=== PATIENT | female | born 1945 | race Caucasian/White ===

== ENCOUNTER → 2016-12-16 | Outpatient (CLI) | payer MEDICARE, OTHER ==
--- NOTE | 2016-12-16 11:27 | CT ---
EXAMINATION TYPE: CT chest wo con DATE OF EXAM: 12/16/2016 10:25 AM COMPARISON: Radiograph 08/04/2016 HISTORY: 71 year-old female with SOB, Cough TECHNIQUE: Contiguous axial scanning of the chest without IV contrast. Coronal and sagittal reconstru ctions performed. CT DLP: 413.20 mGycm Automated exposure control for dose reduction was used. FINDINGS: The heart is upper limits of normal in size without pericardial effusion. Coronary vessel calcificati ons are present and are a marker for coronary artery disease. Ascending aorta is ectatic and 3.9 cm. Conventional arch vessel branching anatomy. No thoracic lymphadenopathy by CT size criteria. Postlumpectomy scar along the lateral left breast. Evaluation of the lungs shows interstitial fibrotic change in the left upper lobe weight subpleural r eticulations and minimal microcystic change. Given the overlying left breast lumpectomy scar, radiati on therapy changes are suggested. However, the remainder of the lungs shows some mild patchy areas of groundglass and some scattered se ptal thickening. No consolidation or pleural effusion. No silvia honeycombing, thickening of the bronc hovascular bundles, cystic change, or tree-in-bud opacities. There is a small hiatal hernia and mild colonic diverticulosis seen in the upper abdomen. Cholecystec gaurav clips are present. In addition, there is a subtle 1.9 cm area of relative hypodensity at the pancreatic tail. Bones: Disc/endplate degenerative changes throughout the thoracic spine. No osseous destructive proce ss. IMPRESSION: 1. LUMPECTOMY SCAR IN THE LATERAL LEFT BREAST WITH UNDERLYING FIBROTIC CHANGES IN THE LEFT UPPER LOBE SUGGESTIVE OF POST RADIATION THERAPY CHANGE. 2. HOWEVER, OTHER PORTIONS OF THE LUNGS SHOW AREAS OF GROUNDGLASS AND INTERSTITIAL THICKENING. SOME D IFFERENTIAL CONSIDERATIONS INCLUDE INFLAMMATORY PROCESSES SUCH NSIP AND HYPERSENSITIVITY PNEUMONIT IS. AREAS OF MOSAIC ATTENUATION SECONDARY TO SMALL AIRWAYS DISEASE IS ALSO POSSIBLE. 3. SUBTLE 1.9 CM AREA OF HYPODENSITY AT THE PANCREATIC TAIL. PSEUDOLESION/ARTIFACT IS POSSIBLE. RECOM MEND THREE-MONTH FOLLOW-UP CT ABDOMEN WITH CONTRAST TO EXCLUDE A SMALL EARLY MASS. 4. SMALL HIATAL HERNIA AND MILD COLONIC DIVERTICULOSIS.
== END | disposition home or self-care (01) ==
LOC: RADCTMAIN 08:24
PROVIDERS: ATTEND Internal Medicine Critical Care Medicine
DX: J98.4 Other disorders of lung (principal); N64.89 Other specified disorders of breast; R06.02 Shortness of breath; R06.00 Dyspnea, unspecified
CPT/HCPCS: 71250; 82565; 84520

== ENCOUNTER → 2017-02-09 | Outpatient (CLI) | payer MEDICARE, OTHER ==
--- NOTE | 2017-02-09 16:34 | BD ---
EXAMINATION TYPE: MG DEXA axial skeleton. DATE OF EXAM: 02/09/2017 COMPARISON: Previous study dated 02/05/2015 CLINICAL HISTORY: Postmenopausal female. Height: 4 FT 11 IN Weight: 197 FRAX RISK QUESTIONS: Alcohol (3 or more units per day): NO Family History (Parent hip fracture): YES Glucocorticoids (More than 3mos): NO (Ex: prednisone, prednisolone, methylprednisolone, dexamethasone, and hydrocortisone). History of Fracture in Adulthood: YES Secondary Osteoporosis: 1. Type 1 Diabetes: NO 2. Hyperthyroidism: NO 3. Menopause before 45: AGE 38 4. Malnutrition: NO 5. Chronic liver disease: NO Rheumatoid Arthritis: NO Current Tobacco Use: NO RISK FACTORS HISTORY OF: Active: YES Postmenopausal woman: PART HYST AGE 38 MEDICATIONS: Prednisone or other steroids: YES How Lon YEARS Additional Medications: HYDROCHLOROTHIAZIDE, INHALER , ARIMADEX, ZOLOFT, POTASSIUM CHLORIDE, VITAMIN DAILY, Additional History: EXAM MEASUREMENTS: Bone mineral densitometry was performed using the [employer]. Bone mineral density as measured about the Lumbar spine is: ----- L1-L4(G/cm2): 1.385 T Score Values are as follows: ----- L2: 0.8 ----- L3: 2.0 ----- L4: 3.6 ----- L1-L4: 1.7 Bone mineral density has: Increased 2.9% since study of: 2014 Bone mineral density about the R hip (g/cm2): 0.916 Bone mineral density about the L hip (g/cm2): 0.900 T Score values are as follows: -----R Neck: -0.9 -----L Neck: -1.0 -----R Total: -0.6 -----L Total: -0.4 Bone mineral density has: Decreased -1.2 % since study of: 2014 IMPRESSION: NORMAL STUDY. NOTE: T-SCORE=SD OF THE YOUNG ADULT MEAN.
== END | disposition home or self-care (01) ==
LOC: RADBDWWP 10:01
PROVIDERS: ATTEND Internal Medicine Hematology & Oncology
DX: C50.919 Malignant neoplasm of unspecified site of unspecified female breast (principal); Z79.890 Hormone replacement therapy
CPT/HCPCS: 77080

== ENCOUNTER → 2017-02-09 | Outpatient (CLI) | payer MEDICARE, OTHER ==
--- NOTE | 2017-02-09 11:22 | MM ---
Reason for exam: additional evaluation requested from prior study. Last mammogram was performed 1 year ago. History: Patient is postmenopausal, has history of breast cancer at age 49, and is nulliparous. Family history of breast cancer in paternal cousin at age 40. Malignant left breast needle localization of the left breast, December 05, 2010. Lumpectomy of the left breast, December 05, 2010. Malignant left mammotome panel of the left breast, November 29, 2010. Reduction of the left breast, 1994. Mastectomy of the right breast, 1993. TRAM Reconstruction of the right breast, 1993. Took hormonal contraceptives for 7 years beginning at age 22. Took progesterone for 6 years. Taking antineoplastic for 4 years. Physical Findings: Nurse did not find any significant physical abnormalities on exam. MG 3D Diag Mammo W/Cad LT CC and MLO view(s) were taken of the left breast. Prior study comparison: February 07, 2016, left breast MG 3d diag mammo w/cad LT. February 05, 2015, left breast MG diagnostic mammo LT w CAD. There are scattered fibroglandular densities. Stable benign calcifications. Stable post lumpectomy changes. No significant new findings when compared with previous films. These results were verbally communicated with the patient and result sheet given to the patient on 02/09/17. ASSESSMENT: Benign, BI-RAD 2 RECOMMENDATION: Follow-up diagnostic mammogram of the left breast.
== END | disposition home or self-care (01) ==
LOC: RADMAMWWP 09:58
PROVIDERS: ATTEND Radiology Diagnostic Radiology
DX: Z08 Encounter for follow-up examination after completed treatment for malignant neoplasm (principal); Z85.3 Personal history of malignant neoplasm of breast
CPT/HCPCS: G0206; G0279

== ENCOUNTER → 2017-04-15 | Outpatient (CLI) | payer MEDICARE, OTHER ==
--- NOTE | 2017-04-15 13:19 | CT ---
EXAMINATION TYPE: CT chest wo con DATE OF EXAM: 04/15/2017 COMPARISON: 12/16/2016 HISTORY: Shortness of breath CT DLP: 755 mGycm. Automated Exposure Control for Dose Reduction was Utilized. TECHNIQUE: CT scan of the thorax is performed without IV contrast and with high-resolution technique . FINDINGS: LUNGS: Bilateral areas of groundglass opacification are noted. There is interlobular septal thickenin g changes of central bronchiectasis. No pneumothorax or pleural effusion.. 3 mm nodule right upper lo be axial image 5 anteriorly MEDIASTINUM: Lack of IV contrast is noted to limit evaluation for mediastinal and especially hilar ad enopathy. There are no definitive greater than 1 cm hilar or mediastinal lymph nodes. Heart remains p rominent. OTHER: Area of abnormal density within the left breast with skin thickening is stable may be related to previous biopsy should be correlated clinically. Coronary artery calcification noted. Previous cho lecystectomy suggested. Hypertrophic and degenerative change of the spine. IMPRESSION: 1. Findings compatible with chronic interstitial lung disease such as pulmonary fibrosis. 2. Probable lumpectomy scar involving the left breast. 3. Areas of groundglass attenuation bilaterally can be associated with alveolitis or atelectasis. Cor relate clinically. 4. Bronchiectasis. 5. There is a 3 mm right upper lobe pulmonary nodule not seen with certainty on the previous exam. Fo llow-up 6 month basis.
== END | disposition home or self-care (01) ==
LOC: RADCTMAIN 12:39
PROVIDERS: ATTEND Internal Medicine Critical Care Medicine
DX: J98.4 Other disorders of lung (principal); R06.02 Shortness of breath; R91.1 Solitary pulmonary nodule; Z91.030 Bee allergy status; Z88.8 Allergy status to other drugs, medicaments and biological substances
CPT/HCPCS: 71250

== ENCOUNTER → 2018-02-11 | Outpatient (CLI) | payer MEDICARE, OTHER ==
--- NOTE | 2018-02-11 12:10 | MM ---
Reason for exam: additional evaluation requested from prior study. Last mammogram was performed 1 year ago. History: Patient is postmenopausal, has history of breast cancer at age 49, and is nulliparous. Family history of breast cancer in paternal cousin at age 40. Malignant left breast needle localization of the left breast, December 05, 2010. Lumpectomy of the left breast, December 05, 2010. Malignant left mammotome panel of the left breast, November 29, 2010. Reduction of the left breast, 1994. Mastectomy of the right breast, 1993. TRAM Reconstruction of the right breast, 1993. Took hormonal contraceptives for 7 years beginning at age 22. Took progesterone for 6 years. Taking antineoplastic for 7 years beginning at age 65. Physical Findings: Nurse did not find any significant physical abnormalities on exam. MG 3D Diag Mammo W/Cad LT CC and MLO view(s) were taken of the left breast. Prior study comparison: February 09, 2017, left breast MG 3d diag mammo w/cad LT. February 07, 2016, left breast MG 3d diag mammo w/cad LT. There are scattered fibroglandular densities. No suspicious abnormality. Post therapy change in the upper outer quadrant on the left breast. These results were verbally communicated with the patient and result sheet given to the patient on 02/11/18. ASSESSMENT: Benign, BI-RAD 2 RECOMMENDATION: Follow-up diagnostic mammogram of the left breast in 1 year.
== END | disposition home or self-care (01) ==
LOC: RADMAMWWP 11:15
PROVIDERS: ATTEND Radiology Diagnostic Radiology
DX: C50.912 Malignant neoplasm of unspecified site of left female breast (principal)
CPT/HCPCS: 77065; G0279; 77061

== ENCOUNTER → 2019-02-14 | Outpatient (CLI) | payer MEDICARE, OTHER ==
--- NOTE | 2019-02-15 09:01 | MM ---
Reason for exam: additional evaluation requested from prior study. Last mammogram was performed 1 year ago. History: Patient is postmenopausal, has history of breast cancer at age 49, and is nulliparous. Family history of breast cancer in paternal cousin at age 40. Malignant left breast needle localization of the left breast, December 05, 2010. Lumpectomy of the left breast, December 05, 2010. Malignant left mammotome panel of the left breast, November 29, 2010. Radiation therapy of the left breast, 2010. Reduction of the left breast, 1994. Mastectomy of the right breast, 1993. TRAM Reconstruction of the right breast, 1993. Took hormonal contraceptives for 7 years beginning at age 22. Took progesterone for 6 years. Taking antineoplastic for 7 years beginning at age 65. Physical Findings: Nurse did not find any significant physical abnormalities on exam. MG 3D Diag Mammo W/Cad LT CC, MLO, and XCCL view(s) were taken of the left breast. Prior study comparison: February 11, 2018, left breast MG 3d diag mammo w/cad LT. February 09, 2017, left breast MG 3d diag mammo w/cad LT. The breast tissue is heterogeneously dense. This may lower the sensitivity of mammography. Stable post operative change and distortion upper outer left breast. No new masses. These results were verbally communicated with the patient and result sheet given to the patient on 02/14/19. ASSESSMENT: Benign, BI-RAD 2 RECOMMENDATION: Follow-up diagnostic mammogram of the left breast in 1 year.
--- NOTE | 2019-02-15 18:44 | BD ---
EXAMINATION TYPE: Axial Bone Density DATE OF EXAM: 02/14/2019 COMPARISON: 2017 CLINICAL HISTORY: 73-year-old female postmenopausal screening for osteoporosis Height: 59.5 Weight: 186 FRAX RISK QUESTIONS: Alcohol (3 or more units per day): no Family History (Parent hip fracture): yes, mother Glucocorticoids (More than 3mos): corticosteroids for asthma (Ex: prednisone, prednisolone, methylprednisolone, dexamethasone, and hydrocortisone). History of Fracture in Adulthood: yes Secondary Osteoporosis: 1. Type 1 Diabetes: no 2. Hyperthyroidism: no 3. Menopause before 45: yes 4. Malnutrition: no 5. Chronic liver disease: no Rheumatoid Arthritis: no Current Tobacco Use: no RISK FACTORS HISTORY OF: Family History of Osteoporosis: yes Active: yes Diet low in dairy products/other sources of calcium: at least one serving a day Postmenopausal woman: yes Take estrogen and/or progesterone medications: not now How long: age [age] Lost more than 2 inches in height since high school: yes Frequent falls: no Poor Health: no Hyperparathyroidism: no Adrenal Insufficiency: no MEDICATIONS: Prednisone or other steroids: corticosteroids for asthma How Long: about 20 years Thyroid Medications: no Osteoporosis Medications: not now (took Boniva for several years) Additional Medications: Arimedex Additional History: breast CA/radiation EXAM MEASUREMENTS: Bone mineral densitometry was performed using the [employer] System. Bone mineral density as measured about the Lumbar spine is: ----- L1-L4(G/cm2): 1.428 T Score Values are as follows: ----- L2: 1.1 ----- L3: 2.8 ----- L4: 3.5 ----- L1-L4: 2.1 Bone mineral density has: Increased 3.2% since study of: 02/14/2017 Bone mineral density about the R hip (g/cm2): 0.943 Bone mineral density about the L hip (g/cm2): 0.979 T Score values are as follows: -----R Neck: -0.7 -----L Neck: -0.4 -----R Total: -0.4 -----L Total: 0.0 Bone mineral density has: Increased 4.2% since study of: 02/09/2017 IMPRESSION: Normal (Values between +1 and -1 indicate normal bone mass). Consider repeating this study in 5 year s or sooner if there is some new clinical indication. NOTE: T-SCORE=SD OF THE YOUNG ADULT MEAN.
== END | disposition home or self-care (01) ==
LOC: RADBDWWP 10:06
PROVIDERS: ATTEND Internal Medicine Hematology & Oncology
DX: C50.919 Malignant neoplasm of unspecified site of unspecified female breast (principal); Z85.3 Personal history of malignant neoplasm of breast; N95.1 Menopausal and female climacteric states; Z79.890 Hormone replacement therapy
CPT/HCPCS: 77080; 77065; G0279; 77061

== ENCOUNTER → 2019-02-14 | Outpatient (CLI) | payer MEDICARE, OTHER | END | disposition home or self-care (01) | LOC: RADMAMWWP 10:02 | PROVIDERS: ATTEND Radiology Diagnostic Radiology | DX: Z53.9 Procedure and treatment not carried out, unspecified reason (principal) | CPT/HCPCS: 77065 ==

== ENCOUNTER → 2019-06-02 | Outpatient (CLI) | payer MEDICARE, OTHER | END | disposition home or self-care (01) | LOC: CPPFTMAIN 08:34 | PROVIDERS: ATTEND Internal Medicine Critical Care Medicine | DX: J98.4 Other disorders of lung (principal) | CPT/HCPCS: 94060; 94726; 94729 ==

== ENCOUNTER → 2020-01-23 | Outpatient (CLI) | payer MEDICARE | END | disposition home or self-care (01) | LOC: LABWHC1 13:14 | PROVIDERS: ATTEND Otolaryngology | DX: Z11.59 Encounter for screening for other viral diseases (principal) | CPT/HCPCS: 36415; 86769 ==

== ENCOUNTER → 2020-02-17 | Outpatient (CLI) | payer MEDICARE, OTHER ==
--- NOTE | 2020-02-17 09:43 | MM ---
Reason for exam: additional evaluation requested from prior study. Last mammogram was performed 1 year ago. History: Patient is postmenopausal, has history of breast cancer at age 49, and is nulliparous. Family history of breast cancer in paternal cousin at age 40. Malignant left breast needle localization of the left breast, December 05, 2010. Lumpectomy of the left breast, December 05, 2010. Malignant left mammotome panel of the left breast, November 29, 2010. Radiation therapy of the left breast, 2010. Reduction of the left breast, 1994. Mastectomy of the right breast, 1993. TRAM Reconstruction of the right breast, 1993. Took hormonal contraceptives for 7 years beginning at age 22. Took progesterone for 6 years. Taking antineoplastic for 9 years beginning at age 65. Physical Findings: Nurse did not find any significant physical abnormalities on exam. MG 3D Diag Mammo W/Cad LT CC and MLO view(s) were taken of the left breast. Prior study comparison: February 14, 2019, left breast MG 3d diag mammo w/cad LT. February 11, 2018, left breast MG 3d diag mammo w/cad LT. There are scattered fibroglandular densities. Post surgical and post therapy changes left posterior upper outer quadrant. Asymmetric density along the lateral margin is more pronounced but becomes less apparent on 3D images. Fat necrosis calcifications and clips. These results were verbally communicated with the patient and result sheet given to the patient on 02/17/20. ASSESSMENT: Probably benign, BI-RAD 3 RECOMMENDATION: Follow-up diagnostic mammogram of the left breast in 6 months.
== END | disposition home or self-care (01) ==
LOC: RADMAMWWP 07:57
PROVIDERS: ATTEND Radiology Diagnostic Radiology
DX: Z09 Encounter for follow-up examination after completed treatment for conditions other than malignant neoplasm (principal); Z85.3 Personal history of malignant neoplasm of breast
CPT/HCPCS: 77065; G0279; 77061

== ENCOUNTER → 2020-07-06 | Outpatient (CLI) | payer MEDICARE ==
[2020-07-07 04:22] LABS: Basophils # (A) 0.1 k/uL (0-0.2); Basophils % (A) 1 %; Eosinophils # (A) 0.2 k/uL (0-0.7); Eosinophils % (A) 3 %; HGB 13.1 gm/dL (11.4-16.0); Hypochromasia Slight; Lymphocytes # (A) 1.7 k/uL (1.0-4.8); Lymphocytes % (A) 25 %; MCH 30.2 pg (25.0-35.0); MCHC 31.9 g/dL (31.0-37.0); MCV 94.5 fL (80.0-100.0); Mean Platelet Volume 8.4; Monocytes # (A) 0.4 k/uL (0-1.0); Monocytes % (A) 7 %; Neutrophils # (A) 4.1 k/uL (1.3-7.7); Neutrophils % (A) 62 %; Platelet Count 248 k/uL (150-450); RBC 4.34 m/uL (3.80-5.40); RDW 14.2 % (11.5-15.5); WBC 6.7 k/uL (3.8-10.6)
== END | disposition home or self-care (01) ==
LOC: LABWHC1 15:35
PROVIDERS: ATTEND Internal Medicine Critical Care Medicine
DX: J84.10 Pulmonary fibrosis, unspecified (principal); I10 Essential (primary) hypertension; J45.909 Unspecified asthma, uncomplicated; C50.919 Malignant neoplasm of unspecified site of unspecified female breast; M79.7 Fibromyalgia
CPT/HCPCS: 36415; 80053; 80061; 82306; 83036; 84439; 84443; 85025

== ENCOUNTER → 2020-08-27 | Outpatient (CLI) | payer MEDICARE ==
[2020-08-28 01:50] LABS: African American GFR (CKD) 57.3 (60.0-200.0); Albumin 4.5 g/dL (3.80-4.90); Albumin/Globulin Ratio 1.96 (1.60-3.17); Anion Gap 10.6 mmol/L (4.00-12.00); BUN/Creat Ratio 28.18 Ratio (12.00-20.00); Calcium 9.6 mg/dL (8.7-10.3); Carbon Dioxide 25.4 mmol/L (21.6-31.8); Chol/HDL Ratio 3.89; Globulin 2.3 g/dL (1.6-3.3); LDL Cholesterol,Calculated 116.6 mg/dL (0.0-131.0); Non-African American GFR(CKD) 49.4 (60.0-200.0); Potassium 3.9 mmol/L (3.5-5.5); Total Bilirubin 0.3 mg/dL (0.2-1.2); Total Protein 6.8 g/dL (6.2-8.2); VLDL Calculation 39.4 mg/dL (5.00-40.00)
[2020-08-28 02:11] LABS: T4, Free (Free Thyroxine) 0.9 ng/dL (0.80-1.80)
== END | disposition home or self-care (01) ==
LOC: LABWHC1 15:42
PROVIDERS: ATTEND Internal Medicine Critical Care Medicine
DX: I10 Essential (primary) hypertension (principal); J45.909 Unspecified asthma, uncomplicated; C50.919 Malignant neoplasm of unspecified site of unspecified female breast; J84.10 Pulmonary fibrosis, unspecified; M72.9 Fibroblastic disorder, unspecified
CPT/HCPCS: 36415; 80053; 80061; 82306; 84439; 84443

== ENCOUNTER → 2020-08-27 | Outpatient (CLI) | payer MEDICARE ==
--- NOTE | 2020-08-28 09:11 | MM ---
Reason for exam: follow-up at short interval from prior study. Last mammogram was performed 6 months ago. History: Patient is postmenopausal, has history of breast cancer at age 49, and is nulliparous. Family history of breast cancer in paternal cousin at age 40. Malignant left breast needle localization of the left breast, December 05, 2010. Lumpectomy of the left breast, December 05, 2010. Malignant left mammotome panel of the left breast, November 29, 2010. Radiation therapy of the left breast, 2010. Reduction of the left breast, 1994. Mastectomy of the right breast, 1993. TRAM Reconstruction of the right breast, 1993. Took hormonal contraceptives for 7 years beginning at age 22. Took progesterone for 6 years. Taking antineoplastic for 9 years beginning at age 65. Physical Findings: Nurse did not find any significant physical abnormalities on exam. MG 3D Diag Mammo W/Cad LT CC, MLO, spot compression CC, XCCL, and LM view(s) were taken of the left breast. Prior study comparison: February 17, 2020, left breast MG 3d diag mammo w/cad LT. February 14, 2019, left breast MG 3d diag mammo w/cad LT. The breast tissue is heterogeneously dense. This may lower the sensitivity of mammography. Post operative distortion left breast. 1cm inner lower nodule left breast 3cm from nipple. This finding is changed when compared with previous exams. These results were verbally communicated with the patient and result sheet given to the patient on 08/27/20. ASSESSMENT: Incomplete: need additional imaging evaluation, BI-RAD 0 RECOMMENDATION: Ultrasound of the left breast.
--- NOTE | 2020-08-28 09:13 | USB ---
Reason for exam: additional evaluation requested from abnormal screening. History: Patient is postmenopausal, has history of breast cancer at age 49, and is nulliparous. Family history of breast cancer in paternal cousin at age 40. Malignant left breast needle localization of the left breast, December 05, 2010. Lumpectomy of the left breast, December 05, 2010. Malignant left mammotome panel of the left breast, November 29, 2010. Radiation therapy of the left breast, 2010. Reduction of the left breast, 1994. Mastectomy of the right breast, 1993. TRAM Reconstruction of the right breast, 1993. Took hormonal contraceptives for 7 years beginning at age 22. Took progesterone for 6 years. Taking antineoplastic for 9 years beginning at age 65. US Breast LT Left complete breast ultrasound includes all four quadrants, the retroareolar region and axilla. Finding demonstrates a 4.9 x 4.4 x 1.4cm irregular, hypoechoic lesion with calcifications at 3 o'clock and a 0.4 x 0.6 x 0.4cm irregular, hypoechoic lesion at 7 o'clock for which a biopsy is recommended. These results were verbally communicated with the patient and result sheet given to the patient on 08/27/20. ASSESSMENT: Suspicious, BI-RAD 4 RECOMMENDATION: Ultrasound core biopsy of the left breast. Called office with mammographic findings and has scheduled an appointment for the patient for 08/30/[address] Michael. Biopsy scheduled for 09/10/20 at 12:00. PRELIMINARY REPORT CALLED AND FAXED TO DR. MICHAEL ON 08/28/20.
== END | disposition home or self-care (01) ==
LOC: RADMAMWWP 13:46
PROVIDERS: ATTEND Radiology Diagnostic Radiology
DX: R92.8 Other abnormal and inconclusive findings on diagnostic imaging of breast (principal)
CPT/HCPCS: 77065; 76641; G0279; 77061

== ENCOUNTER → 2020-09-10 | Day surgery (SDC) | payer MEDICARE ==
[2020-09-10 12:31] VITALS: BP 126/81; PULSE 101; RESP 16; TEMP 98.2
--- NOTE | 2020-09-10 16:40 | USB ---
EXAMINATION TYPE: US biopsy breast VAD LT, MG post biopsy diagnostic mammo LT wo CAD DATE OF EXAM: 09/10/2020 CLINICAL HISTORY: 75-year-old female with personal history of left breast cancer, R92.8 abnormal mammogram. TECHNIQUE: Ultrasound guided core biopsy of the left breast. COMPARISON: 08/27/2020 and 02/17/2020 FINDINGS: The procedure of ultrasound guided core biopsy was explained to the patient. Benefits, alternatives, and risks were discussed. An informed consent was then obtained. The patient was placed in supine positioning for imaging and for the procedure. The overlying skin was prepped and draped in usual sterile fashion. Lidocaine was used as anesthetic into the skin and subcutaneous tissue up to area of concern in the 7:00 left breast. Under ultrasound guidance, a 13-gauge vacuum-assisted mammotome Elite biopsy gun was used to obtain 5 core samples. Following this, a ribbon clip was left in lesion. The patient tolerated the procedure well without any immediate complication. The patient was kept in the radiology department for short stay after the procedure and then discharged home in stable condition. Postprocedure mammogram shows the ribbon clip to be located at the 6:00 position at the site of focal asymmetry seen on 08/27/2020. IMPRESSION: Successful, uncomplicated ultrasound guided core biopsy of the 6-7 o'clock mammographic correlate in the left breast in a patient with personal history of left breast cancer. Full pathology results to follow. Pathology Results: Benign LEFT BREAST, CORE NEEDLE BIOPSY: Sclerotic fibrosis with focal fat necrosis and chronic inflammation. Current specimen negative for in situ or invasive carcinoma. Focal microcalcification present. Recommendation Follow up mammogram of the left breast in 6 months. JABIER
== END ==
LOC: RADUSWWP 12:04
PROVIDERS: ATTEND Radiology Diagnostic Radiology
DX: N60.32 Fibrosclerosis of left breast (principal); N61.0 Mastitis without abscess; N64.1 Fat necrosis of breast; Z85.3 Personal history of malignant neoplasm of breast
CPT/HCPCS: 88305; 77065; 19083; A4648; J2001

== ENCOUNTER → 2021-09-26 | Outpatient (CLI) | payer MEDICARE ==
--- NOTE | 2021-09-26 14:07 | MM ---
Reason for exam: additional evaluation requested from prior study. Last mammogram was performed 1 year and 1 month ago. History: Patient is postmenopausal, has history of breast cancer at age 49, and is nulliparous. Family history of breast cancer in paternal cousin at age 40. Benign US biopsy breast VAD LT of the left breast, September 10, 2020. Malignant left breast needle localization of the left breast, December 05, 2010. Lumpectomy of the left breast, December 05, 2010. Malignant left mammotome panel of the left breast, November 29, 2010. Radiation therapy of the left breast, 2010. Reduction of the left breast, 1994. Mastectomy of the right breast, 1993. TRAM Reconstruction of the right breast, 1993. Took hormonal contraceptives for 7 years beginning at age 22. Took progesterone for 6 years. Taking antineoplastic for 9 years beginning at age 65. MG 3D Diag Mammo W/Cad LT CC and MLO view(s) were taken of the left breast. Prior study comparison: September 10, 2020, left breast MG diagnostic mammo LT wo CAD. August 27, 2020, left breast MG 3d diag mammo w/cad LT. No significant new findings when compared with previous films. These results were verbally communicated with the patient and result sheet given to the patient on 09/26/21. ASSESSMENT: Benign, BI-RAD 2 RECOMMENDATION: Follow-up diagnostic mammogram of the left breast in 1 year.
== END | disposition home or self-care (01) ==
LOC: RADMAMWWP 13:22
PROVIDERS: ATTEND Radiology Diagnostic Radiology
DX: R92.8 Other abnormal and inconclusive findings on diagnostic imaging of breast (principal); Z85.3 Personal history of malignant neoplasm of breast; Z78.0 Asymptomatic menopausal state
CPT/HCPCS: 77065; G0279; 77061

== ENCOUNTER 2022-01-07 22:02 | Emergency (ER) | payer MEDICARE ==
[2022-01-07 22:09] VITALS: RESP 18; TEMP 98.1
--- NOTE | 2022-01-07 23:54 | CT ---
EXAMINATION TYPE: CT brain evgeny wo con DATE OF EXAM: 01/07/2022 COMPARISON: 03/27/2021 HISTORY: fall CT DLP: 1479.7 mGycm Automated exposure control for dose reduction was used. Images of the brain and cervical spine obtained with no contrast. There is cerebral cortical atrophy. There is no mass effect nor midline shift. No sign of intracrania l hemorrhage. The calvarium is intact. There is right lateral frontal scalp hematoma. Skull base is i ntact. There is normal aeration of the mastoid sinuses. The cervical vertebra show degenerative disc space narrowing from C3 to C6 with spurring of the endpl ates. There is multilevel hypertrophic cervical facet arthropathy. No compression fracture. No eviden ce of focal bone destruction. IMPRESSION: Cerebral atrophy. No acute intracranial abnormality. Right frontal scalp hematoma. Spondylotic changes in the cervical spine. No fracture.
--- NOTE | 2022-01-08 01:23 | ED ---
Fall HPI - General Chief Complaint: Fall Stated Complaint: Fall, head injury Source: patient, RN notes reviewed, old records reviewed Mode of arrival: ambulatory - History of Present Illness Initial Comments: This is a 76-year-old female to the emergency room today. Patient is presented today for evaluation of head injury. Fall with head injury patient fell forward on his face hitting her head significant swelling above right eye. No neck pain no other significant complaints of somatic injury she was complaining of some right wrist pain as well but is not really too concerned about it. States she is not MiraLAX or of the right wrist conservator bleeding and she's having minimal bleeding from her forehead. 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 Place Fall Occurred: home Loss of Consciousness: none Prolonged Down Time?: no Symptoms Prior to Fall: none Location: head, face Severity: moderate Severity scale (1-10): 4 Quality: aching Context: tripped/slipped Associated Symptoms: denies - Related Data Home Medications Medication Instructions Recorded Confirmed Albuterol Inhaler (Mhu) [Ventolin 1 - 2 puff INHALATION Q6HR PRN 11/20/15 09/10/20 Hfa Inhaler] Anastrozole [Arimidex] 1 mg PO DAILY 11/20/15 09/10/20 Aspirin 81 mg PO DAILY 11/20/15 09/10/20 Budesonide-Formot 160-4.5 Mcg 2 puff INHALATION BID 11/20/15 09/10/20 [Symbicort 160-4.5 Mcg Inhaler] Calcium Carbonate/Vitamin D3 1 each PO DAILY 11/20/15 09/10/20 [Calcium 600 + Vit D Tablet] Cholecalciferol [Vitamin D3] 1,000 unit PO BID 11/20/15 09/10/20 Magnesium Gluconate [Magonate] 500 mg PO BID 11/20/15 09/10/20 Montelukast [Singulair] 10 mg PO HS 11/20/15 09/10/20 Potassium Chloride [Klor-Con 10] 20 meq PO BID 11/20/15 09/10/20 Sertraline [Zoloft] 100 mg PO DAILY 11/20/15 09/10/20 Triamterene-Hctz 37.5-25Mg 1 cap PO DAILY 11/20/15 09/10/20 [Dyazide 37.5-25 Capsule] Vitamin B Complex 1 each PO DAILY 11/20/15 09/10/20 Zinc 50 mg PO DAILY 08/31/20 09/10/20 hydroCHLOROthiazide 25 mg PO DAILY 08/31/20 09/10/20 Allergies Allergy/AdvReac Type Severity Reaction Status Date / Time levetiracetam [From Keppra] Allergy Unknown Verified 01/07/22 22:09 bee venom protein (honey bee) AdvReac Rash/Hives Verified 01/07/22 22:09 indomethacin [From Indocin] AdvReac SEVERE Verified 01/07/22 22:09 HEADACHE indomethacin sodium AdvReac SEVERE Verified 01/07/22 22:09 [From Indocin] HEADACHE Review of Systems ROS Statement: Those systems with pertinent positive or pertinent negative responses have been documented in the HPI. ROS Other: All systems not noted in ROS Statement are negative. Past Medical History Past Medical History: Asthma Additional Past Medical History / Comment(s): Breast cancer, History of Any Multi-Drug Resistant Organisms: None Reported Past Surgical History: Breast Surgery, Cholecystectomy, Hysterectomy, Orthopedic Surgery Past Psychological History: No Psychological Hx Reported Smoking Status: Never smoker Past Alcohol Use History: None Reported Past Drug Use History: None Reported General Exam Limitations: no limitations General appearance: alert, in no apparent distress Head exam: Present: normocephalic, normal inspection. Absent: atraumatic (Hematoma above right eye) Eye exam: Present: normal appearance, PERRL, EOMI. Absent: scleral icterus, conjunctival injection, periorbital swelling ENT exam: Present: normal exam, mucous membranes moist Neck exam: Present: normal inspection. Absent: tenderness, meningismus, lymphadenopathy Respiratory exam: Present: normal lung sounds bilaterally. Absent: respiratory distress, wheezes, rales, rhonchi, stridor Cardiovascular Exam: Present: regular rate, normal rhythm, normal heart sounds. Absent: systolic murmur, diastolic murmur, rubs, gallop, clicks GI/Abdominal exam: Present: soft, normal bowel sounds. Absent: distended, tenderness, guarding, rebound, rigid Extremities exam: Present: normal inspection, full ROM, normal capillary refill. Absent: tenderness, pedal edema, joint swelling, calf tenderness Back exam: Present: normal inspection Neurological exam: Present: alert, oriented X3, CN II-XII intact Psychiatric exam: Present: normal affect, normal mood Skin exam: Present: warm, dry, intact, normal color. Absent: rash Course Vital Signs 01/07/22 01/08/22 22:06 01:50 Temperature 98.1 F Pulse Rate 89 73 Respiratory 18 18 Rate Blood Pressure 145/82 143/73 O2 Sat by Pulse 95 95 Oximetry - Reevaluation(s) Reevaluation #1: 01/08/22 00:55 Medical record is reviewed Reevaluation #2: 01/08/22 00:55 Patient informed results and questions answered Reevaluation #3: 01/08/22 00 :56 patient feels comfortable for discharge home Procedures - Laceration Laceration #1 Consent Obtained: verbal consent Indication: laceration Site: face Size (cm): 1 Description: linear Size of Sutures: other (Dermabond) Patient Tolerated Procedure: well Medical Decision Making - Medical Decision Making 76 female with fall for fall and had had hematoma and bleeding above right eye which is repaired with Dermabond, CT brain C-spine negative for traumatic injury and patient can be discharged home - Radiology Data Radiology results: report reviewed (CT brain C-spine negative for traumatic injury), image reviewed Disposition Clinical Impression: Fall, Head injury, Hematoma, Forehead laceration Disposition: HOME SELF-CARE Condition: Good Instructions (If sedation given, give patient instructions): Fall Prevention for Older Adults (ED), Head Injury (ED) Is patient prescribed a controlled substance at d/c from ED?: No Referrals: Efrain Navarro DO [Primary Care Provider] - 1-2 days Time of Disposition: 01:40
[2022-01-08] MEDS ORDERED: TOPICAL SKIN ADHESIVE 1 EACH AMP TOPICAL ONE (01:34)
[2022-01-08 01:51] VITALS: BP 143/73; PULSE 73
== END 2022-01-08 02:07 | disposition home or self-care (01) ==
LOC: EC 22:02
DX: S01.81XA Laceration without foreign body of other part of head, initial encounter (principal); J45.909 Unspecified asthma, uncomplicated; Z91.030 Bee allergy status; Z88.8 Allergy status to other drugs, medicaments and biological substances; Z88.6 Allergy status to analgesic agent; W01.0XXA Fall on same level from slipping, tripping and stumbling without subsequent striking against object, initial encounter
CPT/HCPCS: 12011; 70450; 72125; 99284

== ENCOUNTER → 2022-10-28 | Outpatient (CLI) | payer MEDICARE ==
[2022-10-28 19:42] LABS: Basophils # (A) 0.07 X 10*3/uL (0.00-0.10); Basophils % (A) 0.8 %; Eosinophils # (A) 0.22 X 10*3/uL (0.04-0.35); Eosinophils % (A) 2.6 %; HCT 38.5 % (37.2-46.3); HGB 12.1 g/dL (12.0-15.0); Immature Grans, Automated 0.4 %; Lymphocytes # (A) 2.08 X 10*3/uL (0.90-5.00); Lymphocytes % (A) 24.3 %; MCH 29.7 pg (27.0-32.0); MCHC 31.4 g/dL (32.0-37.0); MCV 94.4 fL (80.0-97.0); Mean Platelet Volume 9.3 fL (9.5-12.2); Monocytes # (A) 0.75 X 10*3/uL (0.20-1.00); Monocytes % (A) 8.8 %; NRBC Per 100 WBC 0 /100 WBCS (0.0-0.0); Neutrophils # (A) 5.42 X 10*3/uL (1.80-7.70); Neutrophils % (A) 63.1 %; Platelet Count 273 X 10*3/uL (140-440); RBC 4.08 X 10*6/uL (4.10-5.20); RDW 13.9 % (11.5-14.5); WBC 8.57 X 10*3/uL (4.50-10.00)
[2022-10-28 20:11] LABS: ALT 18 U/L (8-44); AST 21 U/L (13-35); African American GFR (CKD) 32.7 (60.0-200.0); Albumin 4.3 g/dL (3.8-4.9); Albumin/Globulin Ratio 1.22 (1.60-3.17); Alkaline Phosphatase 84 U/L (41-126); BUN/Creat Ratio 19.02 Ratio (12.00-20.00); Blood Urea Nitrogen 32.9 mg/dL (9.0-27.0); Calcium 10.4 mg/dL (8.7-10.3); Carbon Dioxide 23.6 mmol/L (20.0-27.5); Chloride 103 mmol/L (96-109); Chol/HDL Ratio 3.73 Ratio; Globulin 3.5 g/dL (1.6-3.3); Glucose 105 mg/dL (70-110); LDL Cholesterol,Calculated 118.3 mg/dL (0.0-131.0); Non-African American GFR(CKD) 28.2 (60.0-200.0); Potassium 4.6 mmol/L (3.5-5.5); Sodium 138 mmol/L (135-145); Total Protein 7.7 g/dL (6.2-8.2)
== END | disposition home or self-care (01) ==
LOC: LABWHC1 12:22
PROVIDERS: ATTEND Internal Medicine Critical Care Medicine
DX: C50.919 Malignant neoplasm of unspecified site of unspecified female breast (principal); L40.9 Psoriasis, unspecified; J84.10 Pulmonary fibrosis, unspecified; K58.9 Irritable bowel syndrome, unspecified; M79.7 Fibromyalgia
CPT/HCPCS: 36415; 80053; 80061; 82306; 83036; 84439; 84443; 85025

== ENCOUNTER → 2022-10-28 | Outpatient (CLI) | payer MEDICARE ==
--- NOTE | 2022-10-28 12:19 | MM ---
Reason for Exam: Follow-up at short interval from prior study. Last mammogram was performed 1 year(s) and 1 month(s) ago. Patient History: Menarche at age 17. Patient has no children. Left ovary removed at age 37. Right ovary removed at age 37. Hysterectomy at age 37. Postmenopausal. Breast cancer, age 49. Previous chest radiation therapy. Patient used Progesterone for 6 years. Hormonal Contraceptives for 7 years from age 22 until age 29. 12/05/2010, Lumpectomy on the Left side. 1994, Reduction on the Left side. 1993, Mastectomy on the Right side. 09/10/2020, Benign Core Biopsy on the left side. 12/05/2010, Malignant Excisional Biopsy on the left side. 11/29/2010, Malignant Core Biopsy on the left side. 1993, TRAM Reconstruction on the right side. 2010, Radiation Therapy on the left side. Paternal cousin had breast cancer, age 40. Prior Study Comparison: 08/27/2020 Left Diagnostic Mammogram, [facility]. 09/10/2020 Left Diagnostic Mammogram, [facility]. 09/26/2021 Left Diagnostic Mammogram, [facility]. Tissue Density: Left: The breast tissue is heterogeneously dense. This may lower the sensitivity of mammography. Findings: Analyzed By CAD. Marked left breast deformity from prior lumpectomy and radiation therapy. Dystrophic calcifications at the surgical site. Calcifications may have increased slightly. Depression or six-month follow-up is recommended. No distinct underlying mass. Overall Assessment: Probably benign, BI-RAD 3 Management: Diagnostic Mammogram of the left breast. A clinical breast exam by your physician is recommended on an annual basis and results should be correlated with mammographic findings. This exam should not preclude additional follow-up of suspicious palpable abnormalities. Results were given to the patient verbally at the time of exam. Electronically signed and approved by: Chester Chance M.D. Radiologis
== END | disposition home or self-care (01) ==
LOC: RADMAMWWP 11:18
PROVIDERS: ATTEND Radiology Radiation Oncology
DX: R92.8 Other abnormal and inconclusive findings on diagnostic imaging of breast (principal); Z78.0 Asymptomatic menopausal state; Z80.3 Family history of malignant neoplasm of breast
CPT/HCPCS: 77065; G0279; 77061

== ENCOUNTER 2022-12-17 09:13 | Day surgery (SDC) | payer MEDICARE, OTHER ==
[2022-12-15 11:13] VITALS: BMI 35.2
[~2022-12-17 09:13] MED LIST: MOXIFLOXACIN HCL 0.5% DROPS 3 ML BTL OP PRN; TETRACAINE 0.5% OPHTH (PF) DROPS 4 ML BTL OP PRN; TIMOLOL 0.5% OPHTH DROPS 5 ML BTL OP PRN
[2022-12-17] MEDS ORDERED: LACTATED RINGERS 1,000 ML IV SCH (10:17)
[2022-12-17 10:40] VITALS: RESP 16; TEMP 96.6
[2022-12-17] MEDS ORDERED: fentaNYL (PF) 50 MCG/ML 2 ML AMP ONE (11:40)
[2022-12-17] MEDS ORDERED: MIDAZOLAM 2 MG/2 ML VIAL ONE (11:40)
[2022-12-17] MEDS ORDERED: BALANCED SALT IRRIG SOLN COMB2 500 ML IRRIGATION ONE (11:59)
[2022-12-17] MEDS ORDERED: LIDOCAINE 1% (PF) 10MG/ML VIAL MISCELLANE ONE ×2 (12:01)
[2022-12-17] MEDS ORDERED: BALANCED SALT IRRIG SOLN COMB2 15 ML IRRIG.SOLN IRRIGATION ONE (12:01)
[2022-12-17] MEDS ORDERED: EPINEPHrine (PF) 1 MG/ML AMP MISCELLANE ONE ×2 (12:02)
--- NOTE | 2022-12-17 12:32 | P.OP ---
Date of Procedure: 12/17/22 Preoperative Diagnosis: mydriasys & correctopia Postoperative Diagnosis: same Procedure(s) Performed: pupiloplasty OD Implants: none Anesthesia: MAC Surgeon: Yusef Mason Pathology: none sent Condition: stable Disposition: same day Indications for Procedure: diplopia and visual problems, photophobia Operative Findings: No complications
[2022-12-17 13:06] VITALS: BP 139/79; PULSE 67
--- NOTE | 2022-12-17 21:58 | OP ---
OPERATIVE REPORT DATE OF SERVICE : 12/17/2022 PROCEDURE PERFORMED: Pupilloplasty of the right eye. PREOPERATIVE DIAGNOSES: 1. Refractive diplopia. 2. Corectopia. 3. Photophobia secondary to sutured eye well. POSTOPERATIVE DIAGNOSES: 1. Refractive diplopia. 2. Corectopia. 3. Photophobia secondary to sutured eye well. ANESTHESIA: Topical. ESTIMATED BLOOD LOSS: None. SPECIMEN TAKEN: None. NARRATIVE: After obtaining the appropriate consent, the patient was brought to the operating room. There, she was placed under cardiac monitoring and prepped and draped in the usual sterile manner. She was approached from her right temporal side. Three paracenteses at 1 o'clock, 5 o'clock, and at 8 o'clock were placed at the corneal limbus using an MVR blade. The temporal incision was enlarged slightly to accommodate the micro forceps. Through one of the paracenteses, lidocaine MPF 50:50 mix with balanced salt solution was injected into the anterior chamber. From the 1 o'clock paracentesis, a 10- 0 Prolene on an STC-6 needle was inserted through the paracentesis and into the anterior chamber. Using micro forceps graspers, this was then passed through the iris to the posterior aspect. The iris was then re-grasped approximately 2 clock hours clockwise from the original insertion into the iris, and the tip of the needle was then brought back into the anterior chamber at that position. A 27-gauge cannula was passed through the 5 o'clock paracentesis and was used to dock the STC-6 and withdraw the needle through the inferior paracentesis. Both STC-6 needles were amputated from the suture, and using a [place], a Siepser sliding knot suture was performed on the iris reducing the size of the pupil opening in a 3-in-1 sliding knot fashion. The ends of the 10-0 Prolene were then closely cut to the knot on the patient's iris using the micro scissors. All 3 paracenteses were hydrated slightly, and the eye was brought to normal intraocular pressure with balanced salt solution. She then received 2 drops of 0.5% timolol followed by 2 drops of 0.5% moxifloxacin. She was lightly patched and shielded in the usual manner. There were no complications from the procedure. She tolerated the procedure well and was returned to outpatient recovery in good condition. MMODL / IJN: [id number] /
== END 2022-12-17 13:11 | disposition home or self-care (01) ==
LOC: OR 09:13
PROVIDERS: ATTEND Ophthalmology
DX: H53.2 Diplopia (principal); H43.01 Vitreous prolapse, right eye; Q13.2 Other congenital malformations of iris; H53.149 Visual discomfort, unspecified; I10 Essential (primary) hypertension; N28.9 Disorder of kidney and ureter, unspecified; J45.909 Unspecified asthma, uncomplicated; M79.7 Fibromyalgia; M19.90 Unspecified osteoarthritis, unspecified site; F10.20 Alcohol dependence, uncomplicated; Z79.51 Long term (current) use of inhaled steroids; Z79.899 Other long term (current) drug therapy; Z88.8 Allergy status to other drugs, medicaments and biological substances; Z86.19 Personal history of other infectious and parasitic diseases; Z79.52 Long term (current) use of systemic steroids
CPT/HCPCS: 66682; J2250; J0171; J3010; J2001

== ENCOUNTER 2024-06-18 16:38 | Observation (INO) | payer MEDICARE, OTHER ==
--- NOTE | 2024-06-18 17:19 | ED ---
Nausea/Vomiting/Diarrhea HPI - General Chief complaint: Nausea/Vomiting/Diarrhea Stated complaint: cough Time Seen by Provider: 06/18/24 17:17 Source: patient, RN notes reviewed Mode of arrival: wheelchair Limitations: no limitations - History of Present Illness Initial comments: 79-year-old female presented to ER with a chief complaint of vomiting and diarrhea. Patient reports for the past 6 to 7 weeks she has had persistent diarrhea. Patient does report a history of diverticulitis and C. difficile. She states approximately 3 to 4 weeks ago she received a phone call from [facility] stating that she ate contaminated food. Patient was concerned at that time for Listeria and followed up with Dr. Navarro who put her on ciprofloxacin. She did have improvement of diarrhea at that time but 2 days after symptoms returned. She does report mild lower abdominal pain. She has tried taking [id number] ibuprofen and Tylenol for pain control with minor relief. She denies any known fevers but admits to chills and hot flashes. Denies any hematochezia, melena, hematic emesis, urinary complaints, chest pain, shortness of breath or peripheral edema. - Related Data Home Medications Medication Instructions Recorded Confirmed Albuterol Inhaler [Ventolin Hfa 1 - 2 puff INHALATION Q6HR PRN 11/20/15 12/15/22 Inhaler] Anastrozole [Arimidex] 1 mg PO DAILY 11/20/15 12/15/22 Aspirin 81 mg PO DAILY 11/20/15 12/15/22 Budesonide-Formot 160-4.5 Mcg 2 puff INHALATION BID 11/20/15 12/15/22 [Symbicort 160-4.5 Mcg Inhaler] Montelukast [Singulair] 10 mg PO HS 11/20/15 12/15/22 Potassium Chloride [Klor-Con 10] 20 meq PO BID 11/20/15 12/15/22 Sertraline [Zoloft] 100 mg PO HS 11/20/15 12/15/22 Triamterene-Hctz 37.5-25Mg 1 cap PO DAILY 11/20/15 12/15/22 [Dyazide 37.5-25 Capsule] Vitamin B Complex 1 each PO DAILY 11/20/15 12/15/22 Calcium Carbonate [Calcium] 1,200 mg PO BID 12/15/22 12/15/22 Cholecalciferol [Vitamin D3 (25 50 mcg PO BID 12/15/22 12/15/22 Mcg = 1000 Iu)] Magnesium Oxide [Magnesium] 500 mg PO BID 12/15/22 12/15/22 Mucinex (Unknown Dose) 1 dose PO HS 12/15/22 Chasity Eyes Supplement 1 dose PO DIRECTED 12/15/22 Allergies Allergy/AdvReac Type Severity Reaction Status Date / Time levetiracetam [From Keppra] Allergy "dysphoric" Verified 06/18/24 16:48 bee venom protein (honey bee) AdvReac Rash/Hives, Verified 06/18/24 16:48 swelling indomethacin [From Indocin] AdvReac SEVERE Verified 06/18/24 16:48 HEADACHE indomethacin sodium AdvReac SEVERE Verified 06/18/24 16:48 [From Indocin] HEADACHE Review of Systems ROS Statement: Those systems with pertinent positive or pertinent negative responses have been documented in the HPI. ROS Other: All systems not noted in ROS Statement are negative. 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 History of Any Multi-Drug Resistant Organisms: None Reported Past Surgical History: Breast Surgery, Cholecystectomy, Hysterectomy, Joint Replacement Additional Past Surgical History / Comment(s): jesus total knees, cataracts jesus., repositoning of right eye lens at [place] after a fall. Past Anesthesia/Blood Transfusion Reactions: No Reported Reaction Past Psychological History: No Psychological Hx Reported Smoking Status: Never smoker Past Alcohol Use History: Rare Past Drug Use History: None Reported General Exam Limitations: no limitations General appearance: alert, in no apparent distress Respiratory exam: Present: normal lung sounds bilaterally. Absent: respiratory distress, wheezes, rales, rhonchi, stridor Cardiovascular Exam: Present: regular rate, normal rhythm, normal heart sounds. Absent: systolic murmur, diastolic murmur, rubs, gallop, clicks GI/Abdominal exam: Present: soft, tenderness (bilateral lower quadrants), normal bowel sounds Neurological exam: Present: alert, oriented X3, CN II-XII intact Skin exam: Present: warm, dry, intact, normal color. Absent: rash Course Vital Signs 06/18/24 06/18/24 16:48 21:30 Temperature 98 F 97.4 F L Pulse Rate 94 98 Respiratory 18 20 Rate Blood Pressure 111/63 148/77 O2 Sat by Pulse 96 95 Oximetry - Reevaluation(s) Reevaluation #1: 06/18/24 20:30 Case discussed with [facility] physician, Dr. Zeng for admission. Medical Decision Making - Medical Decision Making Was pt. sent in by a medical professional or institution (, PA, HOPPER FEEDER, urgent care, hospital, or [facility]...) When possible be specific @ -No Did you speak to anyone other than the patient for history (EMS, parent, family, police, friend...)? What history was obtained from this source @ -No Did you review nursing and triage notes (agree or disagree)? Why? @ -I reviewed and agree with nursing and triage notes Were old charts reviewed (outside hosp., previous admission, EMS record, old EKG, old radiological studies, urgent care reports/EKG's, [facility] records)? Report findings @ -No old charts were reviewed Differential Diagnosis (chest pain, altered mental status, abdominal pain women, abdominal pain men, vaginal bleeding, weakness, fever, dyspnea, syncope, headache, dizziness, GI bleed, back pain, seizure, CVA, palpatations, mental health, musculoskeletal)? @ -Diverticulitis, colitis, C. difficile, gastroenteritis... This list is not meant to be all-inclusive EKG interpreted by me (3pts min.). @ -As above X-rays interpreted by me (1pt min.). @ -None done CT interpreted by me (1pt min.). @ -CT abdomen pelvis showing acute uncomplicated diverticulitis of the sigmoid colon. U/S interpreted by me (1pt. min.). @ -None done What testing was considered but not performed or refused? (CT, X-rays, U/S, labs)? Why? @ -None What meds were considered but not given or refused? Why? @ -None Did you discuss the management of the patient with other professionals (professionals i.e. , PA, HOPPER FEEDER, lab, RT, psych nurse, social staff worker, pipe wrapping machine operator, teacher, personnel training officer, director of casework department)? Give summary @ -Yes, case discussed with [facility] physician, Dr. Zeng for admission. Was smoking cessation discussed for >3mins.? @ -No Was critical care preformed (if so, how long)? @ -No Were there social determinants of health that impacted care today? How? (Homelessness, low income, unemployed, alcoholism, drug addiction, transportation, low edu. Level, literacy, decrease access to med. care, fpc, rehab)? @ -No Was there de-escalation of care discussed even if they declined (Discuss DNR or withdrawal of care, Hospice)? DNR status @ -No What co-morbidities impacted this encounter? (DM, HTN, Smoking, COPD, CAD, Canc er, CVA, ARF, Chemo, Hep., AIDS, mental health diagnosis, sleep apnea, morbid obesity)? @ -HTN Was patient admitted / discharged? Hospital course, mention meds given and route, prescriptions, significant lab abnormalities, going to OR and other pertinent info. @ -Admitted. 79 year old female presenting to the ER with a chief complaint of diarrhea and weakness. History and physical exam completed. Vitals within normal limits. Patient in no signs of acute distress and nontoxic-appearing. Abdominal exam remarkable for bilateral lower quadrant abdominal tenderness to palpation with normal bowel sounds. No rebound or guarding. Exam otherwise benign. Laboratory studies and CT abdomen pelvis will be obtained along with symptomatic control. Patient is agreeable. CBC unremarkable. CMP showing a sodium 143, potassium 2.9, chloride 113, dioxide 20. BUN of 18, creatinine 1.07 with a GFR of 50 which appear to be at patient's baseline. Urinalysis is contaminated with 12 epithelial cells but concerning of infection with 78 WBCs and occasional white blood cell clumps, moderate bacteria and positive nitrates. Urine sent for culture. C. difficile negative. CT abdomen pelvis concerning of acute sigmoid diverticulitis. Patient given 1 L IV fluid bolus in the ER. Admission was considered and discussed with [facility] physician, Dr. Zeng, for treatment of hypokalemia. Patient placed on potassium placement protocol. Patient also started on Flagyl and Rocephin for diverticulitis. Rocephin also covering UTI. Stool and blood cultures pending. Patient is agreeable for admission. Patient admitted in stable condition. Case discussed with the attending, Dr. Kramer. Undiagnosed new problem with uncertain prognosis? @ -No Drug Therapy requiring intensive monitoring for toxicity (Heparin, Nitro, Insulin, Cardizem)? @ -No Were any procedures done? @ -No Diagnosis/symptom? @ -Hypokalemia/diverticulitis/UTI Acute, or Chronic, or Acute on Chronic? @ -Acute Uncomplicated (without systemic symptoms) or Complicated (systemic symptoms)? @ -Complicated Side effects of treatment? @ -No Exacerbation, Progression, or Severe Exacerbation? @ -No Poses a threat to life or bodily function? How? (Chest pain, USA, VT, pneumonia, PE, COPD, DKA, ARF, appy, cholecystitis, CVA, Diverticulitis, Homicidal, Suicidal, threat to staff... and all critical care pts) @ -Yes, electrolyte abnormalities can lead to lethal cardiac arrhythmias. - Lab Data Result diagrams: 06/18/24 18:21 06/18/24 18:21 Lab Results 06/18/24 06/18/24 06/18/24 Range/Units 18:21 18:21 18:21 WBC 7.9 (3.8-10.6) k/uL RBC 4.59 (3.80-5.40) m/uL Hgb 13.1 (11.4-16.0) gm/dL Hct 42.2 (34.0-46.0) % MCV 92.0 (80.0-100.0) fL MCH 28.6 (25.0-35.0) pg MCHC 31.1 (31.0-37.0) g/dL RDW 15.5 (11.5-15.5) % Plt Count 277 (150-450) k/uL MPV 7.1 Neutrophils % 72 % Lymphocytes % 18 % Monocytes % 6 % Eosinophils % 2 % Basophils % 1 % Neutrophils # 5.7 (1.3-7.7) k/uL Lymphocytes # 1.5 (1.0-4.8) k/uL Monocytes # 0.4 (0-1.0) k/uL Eosinophils # 0.2 (0-0.7) k/uL Basophils # 0.1 (0-0.2) k/uL Hypochromasia Moderate Sodium 143 (137-145) mmol/L Potassium 2.9 L (3.5-5.1) mmol/L Chloride 113 H (98-107) mmol/L Carbon Dioxide 20 L (22-30) mmol/L Anion Gap 10 mmol/L BUN 18 H (7-17) mg/dL Creatinine 1.07 H (0.52-1.04) mg/dL Est GFR (CKD-EPI)AfAm 58 (>60 ml/min/1.73 sqM) Est GFR (CKD-EPI)NonAf 50 (>60 ml/min/1.73 sqM) Glucose 115 H (74-99) mg/dL Plasma Lactic Acid Justin (0.7-2.0) mmol/L Calcium 11.1 H (8.4-10.2) mg/dL Total Bilirubin 0.8 (0.2-1.3) mg/dL AST 20 (14-36) U/L ALT 13 (4-34) U/L Alkaline Phosphatase 91 (38-126) U/L Total Protein 7.0 (6.3-8.2) g/dL Albumin 3.9 (3.5-5.0) g/dL Amylase 65 (30-110) U/L Lipase 93 (23-300) U/L Urine Color Yellow Urine Appearance Turbid H (Clear) Urine pH 6.0 (5.0-8.0) Ur Specific [place] 1.022 (1.001-1.035) Urine Protein 2+ H (Negative) Urine Glucose (UA) Negative (Negative) Urine Ketones Negative (Negative) Urine Blood Negative (Negative) Urine Nitrite Positive H (Negative) Urine Bilirubin Negative (Negative) Urine Urobilinogen <2.0 (<2.0) mg/dL Ur Leukocyte Esterase Large H (Negative) Urine RBC 7 H (0-5) /hpf Urine WBC 78 H (0-5) /hpf Urine WBC Clumps Occasional H (None) /hpf Ur Squamous Epith Cells 12 H (0-4) /hpf Calcium Oxalate Crystal Few H (None) /hpf Urine Bacteria Moderate H (None) /hpf Cellular Casts 4 (0) /lpf Hyaline Casts 33 H (0-2) /lpf Urine Mucus Many H (None) /hpf C. difficile (EIA) Intrp (Negative) 11/23/24 11/23/24 Range/Units 18:21 18:21 WBC (3.8-10.6) k/uL RBC (3.80-5.40) m/uL Hgb (11.4-16.0) gm/dL Hct (34.0-46.0) % MCV (80.0-100.0) fL MCH (25.0-35.0) pg MCHC (31.0-37.0) g/dL RDW (11.5-15.5) % Plt Count (150-450) k/uL MPV Neutrophils % % Lymphocytes % % Monocytes % % Eosinophils % % Basophils % % Neutrophils # (1.3-7.7) k/uL Lymphocytes # (1.0-4.8) k/uL Monocytes # (0-1.0) k/uL Eosinophils # (0-0.7) k/uL Basophils # (0-0.2) k/uL Hypochromasia Sodium (137-145) mmol/L Potassium (3.5-5.1) mmol/L Chloride (98-107) mmol/L Carbon Dioxide (22-30) mmol/L Anion Gap mmol/L BUN (7-17) mg/dL Creatinine (0.52-1.04) mg/dL Est GFR (CKD-EPI)AfAm (>60 ml/min/1.73 sqM) Est GFR (CKD-EPI)NonAf (>60 ml/min/1.73 sqM) Glucose (74-99) mg/dL Plasma Lactic Acid Justin 1.2 (0.7-2.0) mmol/L Calcium (8.4-10.2) mg/dL Total Bilirubin (0.2-1.3) mg/dL AST (14-36) U/L ALT (4-34) U/L Alkaline Phosphatase (38-126) U/L Total Protein (6.3-8.2) g/dL Albumin (3.5-5.0) g/dL Amylase (30-110) U/L Lipase (23-300) U/L Urine Color Urine Appearance (Clear) Urine pH (5.0-8.0) Ur Specific [place] (1.001-1.035) Urine Protein (Negative) Urine Glucose (UA) (Negative) Urine Ketones (Negative) Urine Blood (Negative) Urine Nitrite (Negative) Urine Bilirubin (Negative) Urine Urobilinogen (<2.0) mg/dL Ur Leukocyte Esterase (Negative) Urine RBC (0-5) /hpf Urine WBC (0-5) /hpf Urine WBC Clumps (None) /hpf Ur Squamous Epith Cells (0-4) /hpf Calcium Oxalate Crystal (None) /hpf Urine Bacteria (None) /hpf Cellular Casts (0) /lpf Hyaline Casts (0-2) /lpf Urine Mucus (None) /hpf C. difficile (EIA) Intrp Negative (Negative) - EKG Data -: EKG Interpreted by Me EKG Comments: EKG taken at 20: 18 showing sinus tachycardia. No acute ST segment or T wave abnormalities. Ventricular rate 101, PA 140, QRS duration 86, QT/QTc 283/341 - Radiology Data Radiology results: report reviewed, image reviewed Disposition Clinical Impression: Hypokalemia, Diverticulitis, UTI (urinary tract infection) Disposition: ADMITTED IP TO THIS [facility] Condition: Stable Time of Disposition: 21:59
[2024-06-18] MEDS: SODIUM CHLORIDE 0.9% 1,000 ML IV STA (18:25)
[2024-06-18 18:55] LABS: Basophils # (A) 0.1 k/uL (0-0.2); Basophils % (A) 1 %; Eosinophils # (A) 0.2 k/uL (0-0.7); Eosinophils % (A) 2 %; HCT 42.2 % (34.0-46.0); HGB 13.1 gm/dL (11.4-16.0); Hypochromasia Moderate; Lymphocytes # (A) 1.5 k/uL (1.0-4.8); Lymphocytes % (A) 18 %; MCH 28.6 pg (25.0-35.0); MCHC 31.1 g/dL (31.0-37.0); Mean Platelet Volume 7.1; Monocytes # (A) 0.4 k/uL (0-1.0); Monocytes % (A) 6 %; Neutrophils # (A) 5.7 k/uL (1.3-7.7); Neutrophils % (A) 72 %; Platelet Count 277 k/uL (150-450); RBC 4.59 m/uL (3.80-5.40); RDW 15.5 % (11.5-15.5); WBC 7.9 k/uL (3.8-10.6)
[2024-06-18 19:16] LABS: ALT 13 U/L (4-34); AST 20 U/L (14-36); African American GFR (CKD) 58 (>60 ml/min/1.73 sqM); Albumin 3.9 g/dL (3.5-5.0); Alkaline Phosphatase 91 U/L (38-126); Amylase 65 U/L (30-110); Anion Gap 10 mmol/L; Blood Urea Nitrogen 18 mg/dL (7-17); Calcium 11.1 mg/dL (8.4-10.2); Carbon Dioxide 20 mmol/L (22-30); Chloride 113 mmol/L (98-107); Glucose 115 mg/dL (74-99); Lipase 93 U/L (23-300); Non-African American GFR(CKD) 50 (>60 ml/min/1.73 sqM); Potassium 2.9 mmol/L (3.5-5.1); Sodium 143 mmol/L (137-145); Total Bilirubin 0.8 mg/dL (0.2-1.3)
[2024-06-18 20:49] LABS: Appearance,Urine Turbid (Clear); Bacteria,Urine Moderate /hpf; Bilirubin,Urine Negative (Negative); Blood,Urine Negative (Negative); Calcium Oxalate Crystals,Urine Few /hpf; Cellular Casts,Urine 4 /lpf (0); Color,Urine Yellow; Glucose,Urine (UA) Negative (Negative); Hyaline Casts,Urine 33 /lpf (0-2); Ketones,Urine Negative (Negative); Leukocyte Esterase,Urine Large (Negative); Mucus,Urine Many /hpf; Nitrite,Urine Positive (Negative); Protein,Urine 2+ (Negative); RBC,Urine 7 /hpf (0-5); Specific Gravity,Urine 1.022 (1.001-1.035); Squamous Epithelial Cell,Urine 12 /hpf (0-4); Urobilinogen,Urine <2.0 mg/dL (<2.0); WBC,Urine 78 /hpf (0-5)
--- NOTE | 2024-06-18 21:00 | CT ---
EXAMINATION TYPE: CT abdomen pelvis w con DATE OF EXAM: 06/18/2024 8:55 PM COMPARISON: None available. CLINICAL INDICATION: Female, 79 years old with history of diarrhea; Pt to ED for n/v/d, dehydration. TECHNIQUE: Axial CT abdomen pelvis w con;Sagittal and coronal reformats were created on a separate w orkstation. Contrast used:80 ml mL of Isovue 300 with IV Contrast, (none if empty) Oral contrast used: without Oral Contrast CT DLP: 1072.6 mGycm, Automated exposure control for dose reduction was used. FINDINGS: Cardiomegaly partially visualized. LOWER CHEST: No acute abnormality is. Subpleural reticular changes noted. ABDOMEN LIVER: Unremarkable GALLBLADDER AND BILE DUCTS: The gallbladder is surgically absent. PANCREAS: Unremarkable. SPLEEN: Unremarkable. ADRENAL GLANDS: Unremarkable. KIDNEYS AND URETERS: No evidence of hydronephrosis or renal calculus. The ureters are unremarkable. PELVIS BLADDER: No evidence for wall thickening or mass given limitations of exam. REPRODUCTIVE: The uterus is surgically absent. ABDOMEN & PELVIS STOMACH AND BOWEL: Stomach and duodenum are unremarkable. No evidence small bowel obstruction. Small hiatal hernia. Short segment wall thickening of the sigmoid colon with adjacent left lower quadrant m esenteric stranding/inflammation (axial series image 71). No evidence of pericolonic abscess or free air. PERITONEUM/RETROPERITONEUM: No evidence of pneumoperitoneum or free fluid. VASCULATURE: No evidence of aortic aneurysm. MUSCULOSKELETAL: No acute osseous abnormalities LYMPH NODES: No gross evidence for lymphadenopathy. SOFT TISSUE/ABDOMINAL WALL: Unremarkable IMPRESSION: Findings compatible with acute uncomplicated diverticulitis of the sigmoid colon. [facility], , 06/18/2024 8:58 PM
[2024-06-18] MEDS ORDERED: Potassium Replacement Protocol 1 EACH MISC MISCELLANE PRN (21:07)
[2024-06-18] MEDS ORDERED: NALOXONE 0.4 MG/ML 1 ML VIAL IV PRN (22:00)
[2024-06-18] MEDS: SODIUM CHLORIDE 0.9% 1,000 ML IV SCH (22:54)
[2024-06-18] MEDS: POTASSIUM CHLORIDE 10 MEQ in WATER FOR INJECTION 1 100ML.BAG IVPB SCH (22:56)
[2024-06-18] MEDS: cefTRIAXone IN SWFI 1,000 MG/10 ML SYRINGE IVP SCH (22:59)
[2024-06-19] MEDS: metroNIDAZOLE-NS PMX 500 MG in SALINE 1 100ML.BAG IVPB SCH ×2 (00:04→09:10)
--- NOTE | 2024-06-19 04:26 | P.HPIM ---
History of Present Illness H&P Date: 06/18/24 Patient is a 71-year-old female with a PMH of asthma and history of breast cancer who presents to the emergency room with complaints of abdominal pain and diarrhea. Patient reports that over the past 6 weeks she has been experiencing persistent diarrhea. She attributes it to a batch of meat that had been recalled and that she was contacted about 2 days prior to the onset of her symptoms. She does endorse a prior history of diverticulitis and C. difficile. The patient was seen by Dr. Navarro in the clinic who started her on ciprofloxacin. She does report some initial improvement with subsequent worsening of her diarrhea. Reports 3-4 loose bowel movements daily. Reports mild mid periumbilical and hypogastric discomfort, rated at a 4 out of 10, occurring intermittently throughout the day. Denies fever, chills, nausea, vomiting. Also denies hematemesis, hematochezia, or melena. Patient also denies urinary complaints. CT abdomen and pelvis in the emergency room revealed findings of acute uncomplicated diverticulitis of the sigmoid colon. EKG revealed sinus tach cardia at 101 bpm with a left anterior fascicular block as reviewed by me. Laboratory evaluation was remarkable for potassium 2.9, chloride 113, CO2 20, BUN 18, creatinine 1.07, lactic acid 1.2, with UA contaminated. ED documentation reviewed and case discussed with ED provider. Review of systems: Pertinent positives and negatives as discussed in HPI, a complete review of systems was performed and all other systems are negative. Physical examination: Vital signs reviewed General: non toxic, no distress, appears at stated age, obese Derm: no unusual rashes/lesions, warm Head: atraumatic, normocephalic, symmetric Eyes: EOMI, no lid lag, anicteric sclera, pupils equal round reactive to light ENT: Nose and ears atraumatic Neck: No cervical lymphadenopathy, trachea midline, supple Mouth: no lip lesion, mucus membranes moist Cardiovascular: S1S2 reg, no murmur, positive dorsalis pedis pulse bilateral, no edema Lungs: CTA bilateral, no rhonchi, no rales, no accessory muscle use Abdominal: soft, minimal periumbilical tenderness no guarding Ext: muscle strength 5 out of 5 in all 4 extremities grossly, no gross muscle atrophy, no contractures, Neuro: CN II-XI grossly intact, no gross focal neuro deficits Psych: Alert, oriented, appropriate affect Assessment: Acute uncomplicated diverticulitis Hypokalemia Hypercalcemia, suspect due to dehydration Abnormal UA Chronic conditions: Asthma, history of breast cancer Imaging: CT abdomen and pelvis in the emergency room revealed findings of acute unc omplicated diverticulitis of the sigmoid colon. EKG revealed sinus tach cardia at 101 bpm with a left anterior fascicular block as reviewed by me. Data Review: Laboratory evaluation was remarkable for potassium 2.9, chloride 113, CO2 20, BUN 18, creatinine 1.07, lactic acid 1.2, with UA contaminated. Plan: Continue with ceftriaxone 2 g daily and Flagyl 500 mg IV every 8 hourly Follow-up stool culture Follow-up C. difficile testing Replace potassium and monitor for resolution Continue with IV fluids with normal saline 75 mL/h Repeat UA Resume home medications once reconciled DVT prophylaxis: Lovenox subcu The patient is admitted with an anticipated fewer than 2 midnight stay for evalu ation of diverticulitis CODE STATUS: Full Code Discussed with: Patient Anticipated discharge place: Home Past Medical History Past Medical History: Asthma, Cancer Additional Past Medical History / Comment(s): right breast cancer 1993 with mastectomy & reconstruction, left breast cancer (?2009) with lumpectomy & radiation tx., hx of c-diff with electrolyte imbalance and was on ventilator (2009)., 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 History of Any Multi-Drug Resistant Organisms: None Reported Past Surgical History: Breast Surgery, Cholecystectomy, Hysterectomy, Joint Replacement Additional Past Surgical History / Comment(s): jesus total knees, cataracts jesus., repositoning of right eye lens at [facility] after a fall. Past Anesthesia/Blood Transfusion Reactions: No Reported Reaction Past Psychological History: No Psychological Hx Reported Smoking Status: Never smoker Past Alcohol Use History: Rare Past Drug Use History: None Reported Medications and Allergies Home Medications Medication Instructions Recorded Confirmed Type Albuterol Inhaler [Ventolin Hfa 1 - 2 puff INHALATION Q6HR PRN 11/20/15 12/15/22 History Inhaler] Anastrozole [Arimidex] 1 mg PO DAILY 11/20/15 12/15/22 History Aspirin 81 mg PO DAILY 11/20/15 12/15/22 History Budesonide-Formot 160-4.5 Mcg 2 puff INHALATION BID 11/20/15 12/15/22 History [Symbicort 160-4.5 Mcg Inhaler] Montelukast [Singulair] 10 mg PO HS 11/20/15 12/15/22 History Potassium Chloride [Klor-Con 10] 20 meq PO BID 11/20/15 12/15/22 History Sertraline [Zoloft] 100 mg PO HS 11/20/15 12/15/22 History Triamterene-Hctz 37.5-25Mg 1 cap PO DAILY 11/20/15 12/15/22 History [Dyazide 37.5-25 Capsule] Vitamin B Complex 1 each PO DAILY 11/20/15 12/15/22 History Calcium Carbonate [Calcium] 1,200 mg PO BID 12/15/22 12/15/22 History Cholecalciferol [Vitamin D3 (25 50 mcg PO BID 12/15/22 12/15/22 History Mcg = 1000 Iu)] Magnesium Oxide [Magnesium] 500 mg PO BID 12/15/22 12/15/22 History Mucinex (Unknown Dose) 1 dose PO HS 12/15/22 History Chasity Eyes Supplement 1 dose PO DIRECTED 12/15/22 History Allergies Allergy/AdvReac Type Severity Reaction Status Date / Time levetiracetam [From [facility]] Allergy "dysphoric" Verified 06/18/24 16:48 bee venom protein (honey bee) AdvReac Rash/Hives, Verified 06/18/24 16:48 swelling indomethacin [From Indocin] AdvReac SEVERE Verified 06/18/24 16:48 HEADACHE indomethacin sodium AdvReac SEVERE Verified 06/18/24 16:48 [From Indocin] HEADACHE Physical Exam Vitals: Vital Signs Temp Pulse Resp BP Pulse Ox 06/19/24 01:19 97.5 F L 87 17 141/67 96 06/19/24 00:46 18 06/18/24 21:30 97.4 F L 98 20 148/77 95 06/18/24 16:48 98 F 94 18 111/63 96 Intake and Output 06/18/24 06/18/24 06/19/24 14:59 22:59 06:59 Other: # Voids 4 # Bowel Movements 2 Weight 78.018 kg Results CBC & Chem 7: 06/18/24 18:21 06/18/24 18:21 Labs: Abnormal Lab Results - Last 24 Hours (Table) 06/18/24 06/18/24 Range/Units 18:21 18:21 Potassium 2.9 L (3.5-5.1) mmol/L Chloride 113 H (98-107) mmol/L Carbon Dioxide 20 L (22-30) mmol/L BUN 18 H (7-17) mg/dL Creatinine 1.07 H (0.52-1.04) mg/dL Glucose 115 H (74-99) mg/dL Calcium 11.1 H (8.4-10.2) mg/dL Urine Appearance Turbid H (Clear) Urine Protein 2+ H (Negative) Urine Nitrite Positive H (Negative) Ur Leukocyte Esterase Large H (Negative) Urine RBC 7 H (0-5) /hpf Urine WBC 78 H (0-5) /hpf Urine WBC Clumps Occasional H (None) /hpf Ur Squamous Epith Cells 12 H (0-4) /hpf Calcium Oxalate Crystal Few H (None) /hpf Urine Bacteria Moderate H (None) /hpf Hyaline Casts 33 H (0-2) /lpf Urine Mucus Many H (None) /hpf
[2024-06-19 07:17] LABS: African American GFR (CKD) 69 (>60 ml/min/1.73 sqM); Anion Gap 7 mmol/L; Blood Urea Nitrogen 13 mg/dL (7-17); Carbon Dioxide 16 mmol/L (22-30); Chloride 116 mmol/L (98-107); Glucose 101 mg/dL (74-99); Non-African American GFR(CKD) 60 (>60 ml/min/1.73 sqM); Potassium 3.1 mmol/L (3.5-5.1); Sodium 139 mmol/L (137-145)
[2024-06-19] MEDS ORDERED: Potassium Replacement Protocol 1 EACH MISC MISCELLANE PRN (07:26)
[2024-06-19] MEDS ORDERED: POTASSIUM CHLORIDE ER 20 MEQ TAB.ER PO SCH (08:00)
[2024-06-19] MEDS: ENOXAPARIN 40 MG/0.4 ML SYRINGE SQ SCH (09:09)
[2024-06-19] MEDS: POTASSIUM CHLORIDE ER 10 MEQ TAB.ER.PRT PO SCH (09:09)
[2024-06-19 10:14] LABS: Appearance,Urine Clear (Clear); Bacteria,Urine Many /hpf; Bilirubin,Urine Negative (Negative); Blood,Urine Negative (Negative); Color,Urine Light Yellow; Glucose,Urine (UA) Negative (Negative); Ketones,Urine Negative (Negative); Leukocyte Esterase,Urine Small (Negative); Nitrite,Urine Positive (Negative); Protein,Urine Trace (Negative); RBC,Urine 1 /hpf (0-5); Specific Gravity,Urine 1.039 (1.001-1.035); Squamous Epithelial Cell,Urine 1 /hpf (0-4); Urobilinogen,Urine <2.0 mg/dL (<2.0); WBC,Urine 16 /hpf (0-5)
[2024-06-19] MEDS: DEXTROSE 5% IN WATER 1,000 ML with SODIUM BICARB (1 MEQ/ML) 150 ML IV ONE (10:33)
--- NOTE | 2024-06-19 13:14 | P.PN ---
Subjective Progress Note Date: 06/19/24 71-year-old female with a PMH of asthma and history of breast cancer who presents to the emergency room with complaints of abdominal pain and diarrhea. Patient reports that over the past 6 weeks she has been experiencing persistent diarrhea. She attributes it to a batch of meat that had been recalled and that she was contacted about 2 days prior to the onset of her symptoms. She does endorse a prior history of diverticulitis and C. difficile. The patient was seen by Dr. Navarro in the clinic who started her on ciprofloxacin. She does report some initial improvement with subsequent worsening of her diarrhea. Reports 3-4 loose bowel movements daily. Reports mild mid periumbilical and hypogastric discomfort, rated at a 4 out of 10, occurring intermittently throughout the day. CT abdomen and pelvis in the emergency room revealed findings of acute uncomplicated diverticulitis of the sigmoid colon. EKG revealed sinus tachycardia at 101 bpm with a left anterior fascicular block. Laboratory evaluation was remarkable for potassium 2.9, chloride 113, CO2 20, BUN 18, creatinine 1.07, lactic acid 1.2, with UA contaminated. Started on Rocephin and Flagyl and admitted for further workup and management. 06/19 Patient was seen and examined. 3 bowel movements this morning. C. diff negative. BMP K 3.1, CL 116, bicarb 16, glu 101. Mag 1.2. General: non toxic, no distress, appears at stated age Derm: warm, dry Head: atraumatic, normocephalic, symmetric Eyes: EOMI, no lid lag, anicteric sclera Mouth: no lip lesion, mucus membranes moist Cardiovascular: good distal perfusion in all 4 extremities Lungs: breathing comfortably, no accessory muscle use Ext: no gross muscle atrophy, no edema, no contractures Neuro: no focal neuro deficits Psych: Alert, oriented, appropriate affect Based on my assessment of this patient, this patient meets a high complexity level of care. Acute uncomplicated diverticulitis: Rocephin 2g IV QD + Flagyl 500 mg IV TID. Follow stool Cx, BCx. Recommended C-scope to rule out colon CA to be done in the outpatient setting. HyperCl metabolic acidosis: Likely due to diarrhea. Bicarb 16 this morning. Bicarb deficit 250 meq. DC NS and start D5W with 3 amps sodium bicarb. Hypokalemia and HypoMag: KCl 60 meq PO x 1. 4g Mag sulfate IV x 1. Abnormal UA: Asymptomatic. No treatment. Chronic conditions: Asthma, history of breast cancer CODE STATUS: DVT Prophylaxis: Lovenox SQ GI Prophylaxis: Designated medical POA if patient is not able to make medical decisions for themselves: I have reviewed the following beverage sales consultant notes: I have reviewed the results of the following tests: C. diff. BMP. Mag. I have ordered the following tests: BMP and Mag in the AM. I have discussed the care of this patient with the following independent historian: ELSA. I have independently interpreted the following test below: I have discussed the management of this patient with the following physician: Objective - Vital Signs Vital signs: Vital Signs Temp 97.6 F 06/19/24 07:00 Pulse 79 06/19/24 07:00 Resp 18 06/19/24 07:00 BP 148/84 06/19/24 07:00 Pulse Ox 97 06/19/24 07:00 FiO2 Intake & Output 06/18/24 06/19/24 06/19/24 18:59 06:59 18:59 Weight 78.018 kg Other: # Voids 4 # Bowel Movements 2 1 - Labs CBC & Chem 7: 06/18/24 18:21 06/19/24 06:38 Labs: Abnormal Lab Results - Last 24 Hours (Table) 06/18/24 06/18/24 06/19/24 Range/Units 18:21 18:21 06:38 Potassium 2.9 L 3.1 L (3.5-5.1) mmol/L Chloride 113 H 116 H (98-107) mmol/L Carbon Dioxide 20 L 16 L (22-30) mmol/L BUN 18 H (7-17) mg/dL Creatinine 1.07 H (0.52-1.04) mg/dL Glucose 115 H 101 H (74-99) mg/dL Calcium 11.1 H (8.4-10.2) mg/dL Urine Appearance Turbid H (Clear) Urine Protein 2+ H (Negative) Urine Nitrite Positive H (Negative) Ur Leukocyte Esterase Large H (Negative) Urine RBC 7 H (0-5) /hpf Urine WBC 78 H (0-5) /hpf Urine WBC Clumps Occasional H (None) /hpf Ur Squamous Epith Cells 12 H (0-4) /hpf Calcium Oxalate Crystal Few H (None) /hpf Urine Bacteria Moderate H (None) /hpf Hyaline Casts 33 H (0-2) /lpf Urine Mucus Many H (None) /hpf
[2024-06-19] MEDS: MAGNESIUM SULFATE-D5W PMX 1 GM in DEXTROSE/WATER 1 100ML.BAG IVPB SCH (13:38)
[2024-06-19] MEDS: ACETAMINOPHEN TAB 325 MG TAB PO PRN (18:30)
[2024-06-20 04:16] LABS: African American GFR (CKD) 79 (>60 ml/min/1.73 sqM); Anion Gap 4 mmol/L; Blood Urea Nitrogen 8 mg/dL (7-17); Calcium 8.9 mg/dL (8.4-10.2); Carbon Dioxide 22 mmol/L (22-30); Chloride 112 mmol/L (98-107); Glucose 109 mg/dL (74-99); Magnesium 2.1 mg/dL (1.6-2.3); Non-African American GFR(CKD) 68 (>60 ml/min/1.73 sqM); Sodium 138 mmol/L (137-145)
[2024-06-20] MEDS: ONDANSETRON 4 MG/2 ML VIAL IVP PRN (09:10)
[2024-06-20] MEDS: metroNIDAZOLE 500 MG TAB PO SCH (09:11)
[2024-06-20] MEDS: POTASSIUM CHLORIDE ER 20 MEQ TAB.ER PO STA (09:11)
--- NOTE | 2024-06-20 11:04 | P.DS ---
Providers Date of admission: 06/18/24 22:00 Attending physician: Lizandro Zeng MD [facility] Course: 71-year-old female with a PMH of asthma and history of breast cancer who presents to the emergency room with complaints of abdominal pain and diarrhea. Patient reports that over the past 6 weeks she has been experiencing persistent diarrhea. She attributes it to a batch of meat that had been recalled and that she was contacted about 2 days prior to the onset of her symptoms. She does endorse a prior history of diverticulitis and C. difficile. The patient was seen by Dr. Navarro in the clinic who started her on ciprofloxacin. She does report some initial improvement with subsequent worsening of her diarrhea. Reports 3-4 loose bowel movements daily. Reports mild mid periumbilical and hypogastric discomfort, rated at a 4 out of 10, occurring intermittently throughout the day. CT abdomen and pelvis in the emergency room revealed findings of acute uncomplicated diverticulitis of the sigmoid colon. EKG revealed sinus tachycardia at 101 bpm with a left anterior fascicular block. Laboratory evaluation was remarkable for potassium 2.9, chloride 113, CO2 20, BUN 18, creatinine 1.07, lactic acid 1.2, with UA contaminated. during this hospital course her stool c diff was negative. she was started on ceftriaxone/metronidazole. diarrhea had improved and she was discharged home on 06/20 with po antibx. of note she was noted to be hypokalemic. may need to d/c hctz outpatient if serial bmps in the future show low potassium. Assessment: Acute uncomplicated diverticulitis: continue ceftin/flagyl. would recommend outpatient colonoscopy in 6 weeks. Patient Condition at Discharge: Fair Plan - Discharge Summary Discharge Rx Participant: No New Discharge Prescriptions: New Cefuroxime [Ceftin] 250 mg PO BID 3 Days #6 tab metroNIDAZOLE [Flagyl] 500 mg PO BID #6 tab No Action Vitamin B Complex 1 cap PO HS Potassium Chloride [Klor-Con 10] 20 meq PO BID Triamterene-Hctz 37.5-25Mg [Dyazide 37.5-25 Capsule] 1 cap PO DAILY Sertraline [Zoloft] 100 mg PO HS Budesonide-Formot 160-4.5 Mcg [Symbicort 160-4.5 Mcg Inhaler] 2 puff INHALATION RT-BID Anastrozole [Arimidex] 1 mg PO DAILY Montelukast [Singulair] 10 mg PO HS Aspirin 81 mg PO DAILY Albuterol Inhaler [Ventolin Hfa Inhaler] 2 puff INHALATION RT-Q6H PRN PRN Reason: Shortness Of Breath Magnesium Oxide [Magnesium] 500 mg PO BID Ibuprofen [Motrin] 800 mg PO Q8H guaiFENesin [Mucinex] 600 mg PO HS Baclofen [Lioresal] 20 mg PO HS Baclofen 10 mg PO DAILY Cholecalciferol [Vitamin D3 (25 Mcg = 1000 Iu)] 50 mcg PO BID Calcium Carbonate [Calcium] 1,200 mg PO BID Propylene Glycol/Peg 400 [Systane Ultra 0.4-0.3% Eye Drp] 1 drop BOTH EYES TID Acetaminophen [Tylenol 8 Hour] 1,300 mg PO Q8H Discharge Medication List Albuterol Inhaler [Ventolin Hfa Inhaler] 2 puff INHALATION RT-Q6H PRN 11/20/15 [History] Anastrozole [Arimidex] 1 mg PO DAILY 11/20/15 [History] Aspirin 81 mg PO DAILY 11/20/15 [History] Budesonide-Formot 160-4.5 Mcg [Symbicort 160-4.5 Mcg Inhaler] 2 puff INHALATION RT-BID 11/20/15 [History] Montelukast [Singulair] 10 mg PO HS 11/20/15 [History] Potassium Chloride [Klor-Con 10] 20 meq PO BID 11/20/15 [History] Sertraline [Zoloft] 100 mg PO HS 11/20/15 [History] Triamterene-Hctz 37.5-25Mg [Dyazide 37.5-25 Capsule] 1 cap PO DAILY 11/20/15 [History] Vitamin B Complex 1 cap PO HS 11/20/15 [History] Calcium Carbonate [Calcium] 1,200 mg PO BID 12/15/22 [History] Cholecalciferol [Vitamin D3 (25 Mcg = 1000 Iu)] 50 mcg PO BID 12/15/22 [History] Magnesium Oxide [Magnesium] 500 mg PO BID 12/15/22 [History] Acetaminophen [Tylenol 8 Hour] 1,300 mg PO Q8H 06/19/24 [History] Baclofen 10 mg PO DAILY 06/19/24 [History] Baclofen [Lioresal] 20 mg PO HS 06/19/24 [History] Ibuprofen [Motrin] 800 mg PO Q8H 06/19/24 [History] Propylene Glycol/Peg 400 [Systane Ultra 0.4-0.3% Eye Drp] 1 drop BOTH EYES TID 06/19/24 [History] guaiFENesin [Mucinex] 600 mg PO HS 06/19/24 [History] Cefuroxime [Ceftin] 250 mg PO BID 3 Days #6 tab 06/20/24 [Rx] metroNIDAZOLE [Flagyl] 500 mg PO BID #6 tab 06/20/24 [Rx] Follow up Appointment(s)/Referral(s): Efrain Navarro DO [Primary Care Provider] - 1-2 days Discharge Disposition: HOME SELF-CARE
[2024-06-20] MEDS: LOSARTAN 25 MG TAB PO SCH (12:52)
[2024-06-20] MEDS ORDERED: ALBUTEROL HFA INHALER INHALATION PRN (13:45)
--- NOTE | 2024-06-20 13:46 | P.DS ---
Providers Date of admission: 06/18/24 22:00 Attending physician: Lizandro Zeng MD Primary care physician: Efrain Navarro Assessment: Acute uncomplicated diverticulitis: continue ceftriaxone/flagyl. would recommend colonoscopy in 6 weeks. reports prior hx of diveticulitis. reports last colnoscopy abotu 10 years prior Nonaniongap metabolic acidosis: Likely due to diarrhea. resolved. serum co2 22 today Hypokalemia and HypoMag: i suspect electrolyte losses from diarrhea also from increased renin production causing potassium losses, improving. trial of losartan 25 mg x1 today. reports has not used her hctz in a few weeks primary htn: previously on hctz-triamterine but has not used in the past few weeks right hip pain: check xray generalized weakness, etiology is unclear. reports has been feeling unwell since april. check covid-19 Abnormal UA: Asymptomatic. No treatment. Chronic conditions: Asthma, history of breast canc Patient Condition at Discharge: Fair Plan - Discharge Summary Discharge Rx Participant: No New Discharge Prescriptions: New Cefuroxime [Ceftin] 250 mg PO BID 3 Days #6 tab metroNIDAZOLE [Flagyl] 500 mg PO BID #6 tab No Action Vitamin B Complex 1 cap PO HS Potassium Chloride [Klor-Con 10] 20 meq PO BID Triamterene-Hctz 37.5-25Mg [Dyazide 37.5-25 Capsule] 1 cap PO DAILY Sertraline [Zoloft] 100 mg PO HS Budesonide-Formot 160-4.5 Mcg [Symbicort 160-4.5 Mcg Inhaler] 2 puff INHALATION RT-BID Anastrozole [Arimidex] 1 mg PO DAILY Montelukast [Singulair] 10 mg PO HS Aspirin 81 mg PO DAILY Albuterol Inhaler [Ventolin Hfa Inhaler] 2 puff INHALATION RT-Q6H PRN PRN Reason: Shortness Of Breath Magnesium Oxide [Magnesium] 500 mg PO BID Ibuprofen [Motrin] 800 mg PO Q8H guaiFENesin [Mucinex] 600 mg PO HS Baclofen [Lioresal] 20 mg PO HS Baclofen 10 mg PO DAILY Cholecalciferol [Vitamin D3 (25 Mcg = 1000 Iu)] 50 mcg PO BID Calcium Carbonate [Calcium] 1,200 mg PO BID Propylene Glycol/Peg 400 [Systane Ultra 0.4-0.3% Eye Drp] 1 drop BOTH EYES TID Acetaminophen [Tylenol 8 Hour] 1,300 mg PO Q8H Discharge Medication List Albuterol Inhaler [Ventolin Hfa Inhaler] 2 puff INHALATION RT-Q6H PRN 11/20/15 [History] Anastrozole [Arimidex] 1 mg PO DAILY 11/20/15 [History] Aspirin 81 mg PO DAILY 11/20/15 [History] Budesonide-Formot 160-4.5 Mcg [Symbicort 160-4.5 Mcg Inhaler] 2 puff INHALATION RT-BID 11/20/15 [History] Montelukast [Singulair] 10 mg PO HS 11/20/15 [History] Potassium Chloride [Klor-Con 10] 20 meq PO BID 11/20/15 [History] Sertraline [Zoloft] 100 mg PO HS 11/20/15 [History] Triamterene-Hctz 37.5-25Mg [Dyazide 37.5-25 Capsule] 1 cap PO DAILY 11/20/15 [History] Vitamin B Complex 1 cap PO HS 11/20/15 [History] Calcium Carbonate [Calcium] 1,200 mg PO BID 12/15/22 [History] Cholecalciferol [Vitamin D3 (25 Mcg = 1000 Iu)] 50 mcg PO BID 12/15/22 [History] Magnesium Oxide [Magnesium] 500 mg PO BID 12/15/22 [History] Acetaminophen [Tylenol 8 Hour] 1,300 mg PO Q8H 06/19/24 [History] Baclofen 10 mg PO DAILY 06/19/24 [History] Baclofen [Lioresal] 20 mg PO HS 06/19/24 [History] Ibuprofen [Motrin] 800 mg PO Q8H 06/19/24 [History] Propylene Glycol/Peg 400 [Systane Ultra 0.4-0.3% Eye Drp] 1 drop BOTH EYES TID 06/19/24 [History] guaiFENesin [Mucinex] 600 mg PO HS 06/19/24 [History] Cefuroxime [Ceftin] 250 mg PO BID 3 Days #6 tab 06/20/24 [Rx] metroNIDAZOLE [Flagyl] 500 mg PO BID #6 tab 06/20/24 [Rx] Follow up Appointment(s)/Referral(s): Efrain Navarro DO [Primary Care Provider] - 06/21/24 9:15 am Patient Instructions/Handouts: Hypokalemia (DC), Acute Diarrhea (GEN) Discharge Disposition: HOME SELF-CARE
--- NOTE | 2024-06-20 13:53 | P.PN ---
Subjective Progress Note Date: 06/20/24 Principal diagnosis: 71-year-old female with a PMH of asthma and history of breast cancer who presents to the emergency room with complaints of abdominal pain and diarrhea. Patient reports that over the past 6 weeks she has been experiencing persistent diarrhea. She attributes it to a batch of meat that had been recalled and that she was contacted about 2 days prior to the onset of her symptoms. She does endorse a prior history of diverticulitis and C. difficile. The patient was seen by Dr. Navarro in the clinic who started her on ciprofloxacin. She does report some initial improvement with subsequent worsening of her diarrhea. Reports 3-4 loose bowel movements daily. Reports mild mid periumbilical and hypogastric discomfort, rated at a 4 out of 10, occurring intermittently throughout the day. CT abdomen and pelvis in the emergency room revealed findings of acute uncomplicated diverticulitis of the sigmoid colon. EKG revealed sinus tachycardia at 101 bpm with a left anterior fascicular block. Laboratory evaluation was remarkable for potassium 2.9, chloride 113, CO2 20, BUN 18, creatinine 1.07, lactic acid 1.2, with UA contaminated. started on ceftriaxone/flagyl 06/20: diarrhea improving but reports overall weakness. reports she has to use a walker which is new since april. Objective - Vital Signs Vital signs: Vital Signs Temp 97.4 F L 06/20/24 06:59 Pulse 87 06/20/24 06:59 Resp 18 06/20/24 06:59 BP 162/78 06/20/24 06:59 Pulse Ox 94 L 06/20/24 06:59 FiO2 Intake & Output 06/19/24 06/20/24 06/20/24 18:59 06:59 18:59 Weight 78.018 kg Other: # Voids 1 1 1 # Bowel Movements 1 1 1 - Exam General: non toxic, no distress, appears at stated age Derm: warm, dry Head: atraumatic, normocephalic, symmetric Eyes: EOMI, no lid lag, anicteric sclera Mouth: no lip lesion, mucus membranes moist Cardiovascular: good distal perfusion in all 4 extremities Lungs: breathing comfortably, no accessory muscle use Ext: no gross muscle atrophy, no edema, no contractures Neuro: moving all extremeites spnotoausly. gait evaluated, patient uses a walker Psych: Alert, oriented, appropriate affect - Labs CBC & Chem 7: 06/18/24 18:21 06/20/24 03:16 Labs: Abnormal Lab Results - Last 24 Hours (Table) 06/19/24 06/20/24 Range/Units 15:05 03:16 Potassium 3.1 L 3.0 L (3.5-5.1) mmol/L Chloride 112 H (98-107) mmol/L Glucose 109 H (74-99) mg/dL Microbiology - Last 24 Hours (Table) 06/18/24 21:34 Blood Culture - Preliminary Blood 06/18/24 21:34 Urine Culture - Preliminary Urine,Voided Gram Neg Bacilli 06/18/24 18:21 Stool Culture - Preliminary Stool Assessment and Plan Assessment: Acute uncomplicated diverticulitis: continue ceftriaxone/flagyl. would recommend colonoscopy in 6 weeks. reports prior hx of diverticulitis. reports last colonoscopy abotu 10 years prior Nonaniongap metabolic acidosis: Likely due to diarrhea. resolved. serum co2 22 today Hypokalemia and HypoMag: i suspect electrolyte losses from diarrhea also from increased renin production causing potassium losses, improving. trial of losartan 25 mg x1 today. reports has not used her hctz in a few weeks primary htn: previously on hctz-triamterine but has not used in the past few weeks right hip pain: check xray generalized weakness, etiology is unclear. reports has been feeling unwell since april. check covid-19 Abnormal UA: Asymptomatic. No treatment. Chronic conditions: Asthma, history of breast canc Time with Patient: Greater than 30
[2024-06-20 14:23] LABS: Cryptosporidium Antigen Negative (Negative)
[2024-06-20 16:10] LABS: Basophils # (A) 0.05 X 10*3/uL (0.00-0.10); Basophils % (A) 0.9 %; Eosinophils # (A) 0.42 X 10*3/uL (0.04-0.35); Eosinophils % (A) 7.1 %; HCT 32.7 % (37.2-46.3); HGB 10.5 g/dL (12.0-15.0); Lymphocytes # (A) 1.43 X 10*3/uL (0.90-5.00); Lymphocytes % (A) 24.3 %; MCHC 32.1 g/dL (32.0-37.0); MCV 93.4 FL (80.0-97.0); Monocytes % (A) 8.5 %; NRBC Per 100 WBC 0 X 10*3/uL (0.00-0.01); Neutrophils # (A) 3.47 X 10*3/uL (1.80-7.70); Platelet Count 220 X 10*3/uL (140-440); RDW 16.1 % (11.5-14.5); WBC 5.88 X 10*3/uL (4.50-10.00)
[2024-06-20 16:51] LABS: African American GFR (CKD) 79 (>60 ml/min/1.73 sqM); Anion Gap 4 mmol/L; Blood Urea Nitrogen 8 mg/dL (7-17); Calcium 8.7 mg/dL (8.4-10.2); Carbon Dioxide 23 mmol/L (22-30); Chloride 111 mmol/L (98-107); Glucose 111 mg/dL (74-99); Non-African American GFR(CKD) 68 (>60 ml/min/1.73 sqM); Potassium 3.2 mmol/L (3.5-5.1); Sodium 138 mmol/L (137-145)
[2024-06-20 16:54] LABS: Erythrocyte Sedimentation Rate 33 mm/Hr (0-30)
[2024-06-20] MEDS: ARTIFICIAL TEARS-HYPROMELLOSE DROPS 15 ML BTL BOTH EYES SCH (17:46)
--- NOTE | 2024-06-20 17:55 | XR ---
EXAMINATION TYPE: XR Hip RT and AP Pelvis DATE OF EXAM: 06/20/2024 4:51 PM COMPARISON: Previous CT abdomen/pelvis 06/18/2024. CLINICAL INDICATION: Female, 79 years old with history of pain; [facility] TECHNIQUE: XR Hip RT and AP Pelvis; hip was examined in the frontal and lateral projections and a AP pelvis. FINDINGS: No acute fracture or dislocation. Moderate to severe degenerative arthritis of the right hi p with associated joint space loss, subchondral sclerotic changes and cystic changes. Spurring along the acetabular roof. Pubic bones appear grossly intact. Lumbosacral spine degenerative changes partia lly visualized. IMPRESSION: 1. No acute fracture or dislocation. 2. Moderate to severe degenerative arthritis of the right hip as above. [facility], , 06/20/2024 5:53 PM
[2024-06-20] MEDS: MONTELUKAST 10 MG TAB PO SCH (19:55)
[2024-06-20] MEDS: BACLOFEN 10 MG TAB PO SCH (19:56)
[2024-06-20] MEDS: SERTRALINE 100 MG TAB PO SCH (19:56)
[2024-06-20] MEDS: SYMBICORT 160-4.5 MCG INHALER INHALATION SCH (20:24)
[2024-06-20] MEDS: IBUPROFEN 200 MG TAB PO STA (23:15)
[2024-06-21] MEDS: ASPIRIN 81 MG PO SCH (08:05)
[2024-06-21] MEDS: ANASTROZOLE 1 MG TAB PO SCH (08:06)
[2024-06-21] MEDS: BACLOFEN 10 MG TAB PO SCH (08:06)
[2024-06-21 08:26] LABS: Basophils # (A) 0.05 X 10*3/uL (0.00-0.10); Basophils % (A) 0.7 %; Eosinophils # (A) 0.37 X 10*3/uL (0.04-0.35); Eosinophils % (A) 5.2 %; HCT 32.1 % (37.2-46.3); Lymphocytes # (A) 1.44 X 10*3/uL (0.90-5.00); Lymphocytes % (A) 20.4 %; MCHC 31.2 g/dL (32.0-37.0); Mean Platelet Volume 9.7 FL (9.5-12.2); Monocytes # (A) 0.65 X 10*3/uL (0.20-1.00); Monocytes % (A) 9.2 %; NRBC Per 100 WBC 0 X 10*3/uL (0.00-0.01); Neutrophils # (A) 4.52 X 10*3/uL (1.80-7.70); Neutrophils % (A) 64.1 %; Platelet Count 229 X 10*3/uL (140-440); RBC 3.45 X 10*6/uL (4.10-5.20); RDW 16.3 % (11.5-14.5); WBC 7.06 X 10*3/uL (4.50-10.00)
[2024-06-21 08:44] LABS: BUN/Creat Ratio 9.12 Ratio (12.00-20.00); Blood Urea Nitrogen 7.3 mg/dL (9.0-27.0); Calcium 8.8 mg/dL (8.7-10.3); Carbon Dioxide 22.9 mmol/L (21.6-31.8); Chloride 109 mmol/L (96-109); Glucose 98 mg/dL (70-110); Potassium 3.3 mmol/L (3.5-5.5); Sodium 142 mmol/L (135-145)
[2024-06-21] MEDS ORDERED: Potassium Replacement Protocol 1 EACH MISC MISCELLANE PRN (10:46)
[2024-06-21] MEDS: POTASSIUM CHLORIDE ER 20 MEQ TAB.ER PO SCH (10:55)
--- NOTE | 2024-06-21 15:28 | P.PN ---
Subjective Progress Note Date: 06/21/24 Subjective Progress Note Date: 06/20/24 Principal diagnosis: 71-year-old female with a PMH of asthma and history of breast cancer who presen ts to the emergency room with complaints of abdominal pain and diarrhea. Patient reports that over the past 6 weeks she has been experiencing persistent diarrhea. She attributes it to a batch of meat that had been recalled and that she was contacted about 2 days prior to the onset of her symptoms. She does endorse a prior history of diverticulitis and C. difficile. The patient was seen by Dr. Navarro in the clinic who started her on ciprofloxacin. She does report some initial improvement with subsequent worsening of her diarrhea. Reports 3-4 loose bowel movements daily. Reports mild mid periumbilical and hypogastric discomfort, rated at a 4 out of 10, occurring intermittently throughout the day. CT abdomen and pelvis in the emergency room revealed findings of acute uncomplicated diverticulitis of the sigmoid colon. EKG revealed sinus tachycardia at 101 bpm with a left anterior fascicular block. Laboratory evaluation was remarkable for potassium 2.9, chloride 113, CO2 20, BUN 18, creatinine 1.07, lactic acid 1.2, with UA contaminated. started on ceftriaxone/flagyl 06/20: diarrhea improving but reports overall weakness. reports she has to use a walker which is new since april. Objective - Vital Signs Vital signs: Vital Signs Temp 97.4 F L 06/20/24 06:59 Pulse 87 06/20/24 06:59 Resp 18 06/20/24 06:59 BP 162/78 06/20/24 06:59 Pulse Ox 94 L 06/20/24 06:59 FiO2 Intake & Output 06/19/24 06/20/24 06/20/24 18:59 06:59 18:59 Weight 78.018 kg Other: # Voids 1 1 1 # Bowel Movements 1 1 1 - Exam General: non toxic, no distress, appears at stated age Derm: warm, dry Head: atraumatic, normocephalic, symmetric Eyes: EOMI, no lid lag, anicteric sclera Mouth: no lip lesion, mucus membranes moist Cardiovascular: good distal perfusion in all 4 extremities Lungs: breathing comfortably, no accessory muscle use Ext: no gross muscle atrophy, no edema, no contractures Neuro: moving all extremeites spnotoausly. gait evaluated, patient uses a walker Psych: Alert, oriented, appropriate affect Assessment and Plan Assessment: Acute uncomplicated diverticulitis: continue ceftriaxone/flagyl. would recommend colonoscopy in 6 weeks. reports prior hx of diverticulitis. reports last colonoscopy abotu 10 years prior Nonaniongap metabolic acidosis: Likely due to diarrhea. resolved. serum co2 22 today Hypokalemia and HypoMag: i suspect electrolyte losses from diarrhea also from in creased renin production causing potassium losses, improving. trial of losartan 25 mg x1 today. reports has not used her hctz in a few weeks primary htn: previously on hctz-triamterine but has not used in the past few weeks right hip pain: check xray generalized weakness, etiology is unclear. reports has been feeling unwell since april. check covid-19 Abnormal UA: Asymptomatic. No treatment. Chronic conditions: Asthma, history of breast canc 06/21 Patient seen and examined at bedside Urine culture is growing E. coli resistant to Rocephin Discontinued Rocephin Start patient on Bactrim Will monitor overnight to see how the patient does, can possibly be discharged in the morning if tolerating her Bactrim Otherwise continue to monitor the patient Will continue Flagyl at this time for intra-abdominal anaerobic coverage Time with Patient: Greater than 30 Objective - Vital Signs Vital signs: Vital Signs Temp 97.8 F 06/21/24 13:57 Pulse 77 06/21/24 13:57 Resp 17 06/21/24 13:57 BP 137/78 06/21/24 13:57 Pulse Ox 93 L 06/21/24 13:57 FiO2 Intake & Output 06/20/24 06/21/24 06/21/24 18:59 06:59 18:59 Intake Total 1080 140 Balance 1080 140 Intake: Oral 1080 140 Other: Voiding Method Toilet # Voids 1 5 # Bowel Movements 2 4 - Labs CBC & Chem 7: 06/21/24 03:16 06/21/24 03:16 Labs: Abnormal Lab Results - Last 24 Hours (Table) 06/20/24 06/20/24 06/20/24 Range/Units 03:16 03:16 16:16 RBC 3.50 L (4.10-5.20) X 10*6/uL Hgb 10.5 L (12.0-15.0) g/dL Hct 32.7 L (37.2-46.3) % MCHC (32.0-37.0) g/dL RDW 16.1 H (11.5-14.5) % Eosinophils # 0.42 H (0.04-0.35) X 10*3/uL ESR 33 H (0-30) mm/Hr Potassium 3.2 L (3.5-5.1) mmol/L Chloride 111 H (98-107) mmol/L BUN (9.0-27.0) mg/dL BUN/Creatinine Ratio (12.00-20.00) Ratio Glucose 111 H (74-99) mg/dL C-Reactive Protein 1.40 H (0.00-0.80) mg/dL 06/21/24 06/21/24 Range/Units 03:16 03:16 RBC 3.45 L (4.10-5.20) X 10*6/uL Hgb 10.0 L (12.0-15.0) g/dL Hct 32.1 L (37.2-46.3) % MCHC 31.2 L (32.0-37.0) g/dL RDW 16.3 H (11.5-14.5) % Eosinophils # 0.37 H (0.04-0.35) X 10*3/uL ESR (0-30) mm/Hr Potassium 3.3 L (3.5-5.1) mmol/L Chloride (98-107) mmol/L BUN 7.3 L (9.0-27.0) mg/dL BUN/Creatinine Ratio 9.12 L (12.00-20.00) Ratio Glucose (74-99) mg/dL C-Reactive Protein (0.00-0.80) mg/dL Microbiology - Last 24 Hours (Table) 06/18/24 21:34 Blood Culture - Preliminary Blood 06/18/24 21:34 Urine Culture - Final Urine,Voided Escherichia coli 06/18/24 18:21 Stool Culture - Preliminary Stool
[2024-06-21] MEDS: SULFAMETHOX-TMP 800-160MG 1 EACH TAB PO SCH (16:16)
--- NOTE | 2024-06-22 13:37 | P.DS ---
Providers Date of admission: 06/18/24 22:00 Expected date of discharge: 06/22/24 Attending physician: Lizandro Zeng MD Primary care physician: Efrain Navarro [facility] Course: hpi Progress Note Date: 06/20/24 Principal diagnosis: 71-year-old female with a PMH of asthma and history of breast cancer who presents to the emergency room with complaints of abdominal pain and diarrhea. Patient reports that over the past 6 weeks she has been experiencing persistent diarrhea. She attributes it to a batch of meat that had been recalled and that she was contacted about 2 days prior to the onset of her symptoms. She does endorse a prior history of diverticulitis and C. difficile. The patient was seen by Dr. Navarro in the clinic who started her on ciprofloxacin. She does repo rt some initial improvement with subsequent worsening of her diarrhea. Reports 3-4 loose bowel movements daily. Reports mild mid periumbilical and hypogastric discomfort, rated at a 4 out of 10, occurring intermittently throughout the day. CT abdomen and pelvis in the emergency room revealed findings of acute uncomplicated diverticulitis of the sigmoid colon. EKG revealed sinus tachycardia at 101 bpm with a left anterior fascicular block. Laboratory evaluation was remarkable for potassium 2.9, chloride 113, CO2 20, BUN 18, creatinine 1.07, lactic acid 1.2, with UA contaminated. started on ceftriaxone/flagyl Objective - Vital Signs Vital signs: Vital Signs Temp 97.4 F L 06/20/24 06:59 Pulse 87 06/20/24 06:59 Resp 18 06/20/24 06:59 BP 162/78 06/20/24 06:59 Pulse Ox 94 L 06/20/24 06:59 FiO2 Intake & Output 06/19/24 06/20/24 06/20/24 18:59 06:59 18:59 Weight 78.018 kg Other: # Voids 1 1 1 # Bowel Movements 1 1 1 - Exam General: non toxic, no distress, appears at stated age Derm: warm, dry Head: atraumatic, normocephalic, symmetric Eyes: EOMI, no lid lag, anicteric sclera Mouth: no lip lesion, mucus membranes moist Cardiovascular: good distal perfusion in all 4 extremities Lungs: breathing comfortably, no accessory muscle use Ext: no gross muscle atrophy, no edema, no contractures Neuro: moving all extremeites spnotoausly. gait evaluated, patient uses a walker Psych: Alert, oriented, appropriate affect Assessment: Acute uncomplicated diverticulitis: continue ceftriaxone/flagyl. would recommend colonoscopy in 6 weeks. reports prior hx of diveticulitis. reports last colnoscopy abotu 10 years prior Nonaniongap metabolic acidosis: Likely due to diarrhea. resolved. serum co2 22 today Hypokalemia and HypoMag: i suspect electrolyte losses from diarrhea also from increased renin production causing potassium losses, improving. trial of losartan 25 mg x1 today. zaina has not used her hctz in a few weeks primary htn: previously on hctz-triamterine but has not used in the past few w eeks right hip pain: check xray generalized weakness, etiology is unclear. reports has been feeling unwell since april. check covid-19 Abnormal UA: Asymptomatic. No treatment. Chronic conditions: Asthma, history of breast canc Patient Condition at Discharge: Fair Plan - Discharge Summary Discharge Rx Participant: No New Discharge Prescriptions: New metroNIDAZOLE [Flagyl] 500 mg PO BID #6 tab Sulfamethox-Tmp 800-160Mg [Bactrim DS 800-160 mg] 1 each PO BID #8 tab No Action Vitamin B Complex 1 cap PO HS Potassium Chloride [Klor-Con 10] 20 meq PO BID Triamterene-Hctz 37.5-25Mg [Dyazide 37.5-25 Capsule] 1 cap PO DAILY Sertraline [Zoloft] 100 mg PO HS Budesonide-Formot 160-4.5 Mcg [Symbicort 160-4.5 Mcg Inhaler] 2 puff INHALATION RT-BID Anastrozole [Arimidex] 1 mg PO DAILY Montelukast [Singulair] 10 mg PO HS Aspirin 81 mg PO DAILY Albuterol Inhaler [Ventolin Hfa Inhaler] 2 puff INHALATION RT-Q6H PRN PRN Reason: Shortness Of Breath Magnesium Oxide [Magnesium] 500 mg PO BID Ibuprofen [Motrin] 800 mg PO Q8H guaiFENesin [Mucinex] 600 mg PO HS Baclofen [Lioresal] 20 mg PO HS Baclofen 10 mg PO DAILY Cholecalciferol [Vitamin D3 (25 Mcg = 1000 Iu)] 50 mcg PO BID Calcium Carbonate [Calcium] 1,200 mg PO BID Propylene Glycol/Peg 400 [Systane Ultra 0.4-0.3% Eye Drp] 1 drop BOTH EYES TID Acetaminophen [Tylenol 8 Hour] 1,300 mg PO Q8H Discharge Medication List Albuterol Inhaler [Ventolin Hfa Inhaler] 2 puff INHALATION RT-Q6H PRN 11/20/15 [History] Anastrozole [Arimidex] 1 mg PO DAILY 11/20/15 [History] Aspirin 81 mg PO DAILY 11/20/15 [History] Budesonide-Formot 160-4.5 Mcg [Symbicort 160-4.5 Mcg Inhaler] 2 puff INHALATION RT-BID 11/20/15 [History] Montelukast [Singulair] 10 mg PO HS 11/20/15 [History] Potassium Chloride [Klor-Con 10] 20 meq PO BID 11/20/15 [History] Sertraline [Zoloft] 100 mg PO HS 11/20/15 [History] Triamterene-Hctz 37.5-25Mg [Dyazide 37.5-25 Capsule] 1 cap PO DAILY 11/20/15 [History] Vitamin B Complex 1 cap PO HS 11/20/15 [History] Calcium Carbonate [Calcium] 1,200 mg PO BID 12/15/22 [History] Cholecalciferol [Vitamin D3 (25 Mcg = 1000 Iu)] 50 mcg PO BID 12/15/22 [History] Magnesium Oxide [Magnesium] 500 mg PO BID 12/15/22 [History] Acetaminophen [Tylenol 8 Hour] 1,300 mg PO Q8H 06/19/24 [History] Baclofen 10 mg PO DAILY 06/19/24 [History] Baclofen [Lioresal] 20 mg PO HS 06/19/24 [History] Ibuprofen [Motrin] 800 mg PO Q8H 06/19/24 [History] Propylene Glycol/Peg 400 [Systane Ultra 0.4-0.3% Eye Drp] 1 drop BOTH EYES TID 06/19/24 [History] guaiFENesin [Mucinex] 600 mg PO HS 06/19/24 [History] metroNIDAZOLE [Flagyl] 500 mg PO BID #6 tab 06/20/24 [Rx] Sulfamethox-Tmp 800-160Mg [Bactrim DS 800-160 mg] 1 each PO BID #8 tab 06/22/24 [Rx] Follow up Appointment(s)/Referral(s): [facility], [NON-STAFF] - As Needed Aging,[facility] [NON-STAFF] - As Needed (Please call [facility] [place]ging for in home housekeeping and/or meals on wheels) Efrain Navarro DO [Primary Care Provider] - 09/14/24 2:00 pm Patient Instructions/Handouts: Hypokalemia (DC), Acute Diarrhea (GEN) Discharge/Stand Alone Forms: [facility] Home Discharge Disposition: HOME SELF-CARE Plan of Treatment: Continue flagyl for 3 additional days Continue Bactrim for 4 additional days Follow-up with primary care physician in 1 to 2 weeks for posthospitalization care with Dr. Navarro
[2024-06-22 14:01] VITALS: BP 116/71; PULSE 86; RESP 16; TEMP 97.9
== END 2024-06-22 17:11 | disposition home or self-care (01) ==
LOC: EC 16:38 → 6NMEDSUR 22:00 → 5NMEDONC 22:12 → 4SSUR 06-19 05:15
PROVIDERS: ADMIT Internal Medicine; ATTEND Internal Medicine
DX: K57.32 Diverticulitis of large intestine without perforation or abscess without bleeding (principal); E87.6 Hypokalemia; Z85.3 Personal history of malignant neoplasm of breast; J45.909 Unspecified asthma, uncomplicated; R82.90 Unspecified abnormal findings in urine; I44.4 Left anterior fascicular block; R00.0 Tachycardia, unspecified; E87.20 Acidosis, unspecified; E83.42 Hypomagnesemia; M25.551 Pain in right hip; R53.1 Weakness; Z16.19 Resistance to other specified beta lactam antibiotics; E83.52 Hypercalcemia; Z79.51 Long term (current) use of inhaled steroids; Z79.811 Long term (current) use of aromatase inhibitors; Z79.82 Long term (current) use of aspirin; Z79.899 Other long term (current) drug therapy; Z90.710 Acquired absence of both cervix and uterus
CPT/HCPCS: 96361 ×3; 96366 ×4; 96367 ×2; 96372 ×4; 96375; 96368; 96376; 96365; 99285; 36415; 94640 ×3; 93005; 97161; 97165; 36410; 76937; 84300; 80053; 80048 ×3; 85652; 84133; 82150; 83605; 83690; 83735 ×2; 84132; 85025 ×3; 86140; 81001 ×2; 87040; 87324; 87086; 87045; 87329; 87328; 87077; 87186; 87046; 87635; 73502; 74177; G0378 ×7; J2405; J0696 ×4; J1650 ×4; S0170 ×2; J3475; J3480 ×2; Q9967; J1836 ×2

== ENCOUNTER 2024-07-10 14:45 | Emergency (ER) | payer MEDICARE, OTHER ==
[2024-07-10 15:01] VITALS: TEMP 98.3
--- NOTE | 2024-07-10 15:24 | ED ---
Nausea/Vomiting/Diarrhea HPI - General Chief complaint: Nausea/Vomiting/Diarrhea Stated complaint: GI Bleed Time Seen by Provider: 07/10/24 15:01 Source: patient, RN notes reviewed Mode of arrival: EMS Limitations: no limitations - History of Present Illness Initial comments: This is a 79-year-old female with history of diverticulitis, hypokalemia and b reast cancer presenting via EMS for dark green stool x 3 days. Patient states stool started as normal consistency and is since become more "running" endorses associated weakness with no abdominal pain. States she has been taking increased frequency of Motrin/ibuprofen recently. Patient states she was seen at [facility] 3 weeks ago where she was diagnosed with diverticulitis and treated with Bactrim and Flagyl. 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 States she normally sees Dr. Navarro. Denies fever, chills, chest pain, dyspnea, N/V, dizziness MD complaint: diarrhea Onset/Timin -: days(s) Description of Vomiting: other (Dark green stool, mild loose) Associated Abdominal Pain: No Context: recent antibiotic use Associated Symptoms: weakness - Related Data Home Medications Medication Instructions Recorded Confirmed Albuterol Inhaler [Ventolin Hfa 2 puff INHALATION RT-Q6H PRN 11/20/15 06/19/24 Inhaler] Anastrozole [Arimidex] 1 mg PO DAILY 11/20/15 06/19/24 Aspirin 81 mg PO DAILY 11/20/15 06/19/24 Budesonide-Formot 160-4.5 Mcg 2 puff INHALATION RT-BID 11/20/15 06/19/24 [Symbicort 160-4.5 Mcg Inhaler] Montelukast [Singulair] 10 mg PO HS 11/20/15 06/19/24 Potassium Chloride [Klor-Con 10] 20 meq PO BID 11/20/15 06/19/24 Sertraline [Zoloft] 100 mg PO HS 11/20/15 06/19/24 Triamterene-Hctz 37.5-25Mg 1 cap PO DAILY 11/20/15 06/19/24 [Dyazide 37.5-25 Capsule] Vitamin B Complex 1 cap PO HS 11/20/15 06/19/24 Calcium Carbonate [Calcium] 1,200 mg PO BID 12/15/22 06/19/24 Cholecalciferol [Vitamin D3 (25 50 mcg PO BID 12/15/22 06/19/24 Mcg = 1000 Iu)] Magnesium Oxide [Magnesium] 500 mg PO BID 12/15/22 06/19/24 Acetaminophen [Tylenol 8 Hour] 1,300 mg PO Q8H 06/19/24 06/19/24 Baclofen 10 mg PO DAILY 06/19/24 06/19/24 Baclofen [Lioresal] 20 mg PO HS 06/19/24 06/19/24 Ibuprofen [Motrin] 800 mg PO Q8H 06/19/24 06/19/24 Propylene Glycol/Peg 400 [Systane 1 drop BOTH EYES TID 06/19/24 06/19/24 Ultra 0.4-0.3% Eye Drp] guaiFENesin [Mucinex] 600 mg PO HS 06/19/24 06/19/24 Previous Rx's Medication Instructions Recorded metroNIDAZOLE [Flagyl] 500 mg PO BID #6 tab 06/20/24 Sulfamethox-Tmp 800-160Mg [Bactrim 1 each PO BID #8 tab 06/22/24 DS 800-160 mg] Allergies Allergy/AdvReac Type Severity Reaction Status Date / Time levetiracetam [From Keppra] Allergy "dysphoric" Verified 06/19/24 11:24 bee venom protein (honey bee) AdvReac Rash/Hives, Verified 06/19/24 11:24 swelling indomethacin [From Indocin] AdvReac SEVERE Verified 06/19/24 11:24 HEADACHE indomethacin sodium AdvReac SEVERE Verified 06/19/24 11:24 [From Indocin] HEADACHE Review of Systems ROS Statement: Those systems with pertinent positive or pertinent negative responses have been documented in the HPI. ROS Other: All systems not noted in ROS Statement are negative. 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 History of Any Multi-Drug Resistant Organisms: None Reported Past Surgical History: Breast Surgery, Cholecystectomy, Hysterectomy, Joint Replacement Additional Past Surgical History / Comment(s): jesus total knees, cataracts jesus., repositoning of right eye lens at [place] after a fall. Past Anesthesia/Blood Transfusion Reactions: No Reported Reaction Past Psychological History: No Psychological Hx Reported Smoking Status: Never smoker Past Alcohol Use History: None Reported Past Drug Use History: None Reported General Exam Limitations: no limitations General appearance: alert, in no apparent distress Head exam: Present: atraumatic, normocephalic, normal inspection Eye exam: Present: normal appearance, PERRL, EOMI. Absent: scleral icterus, conjunctival injection, periorbital swelling ENT exam: Present: normal exam, mucous membranes moist Neck exam: Present: normal inspection. Absent: tenderness, meningismus, lymphadenopathy Respiratory exam: Present: normal lung sounds bilaterally. Absent: respiratory distress, wheezes, rales, rhonchi, stridor Cardiovascular Exam: Present: regular rate, normal rhythm, normal heart sounds. Absent: systolic murmur, diastolic murmur, rubs, gallop, clicks GI/Abdominal exam: Present: soft, tenderness (Positive LLQ and RLQ tenderness without guarding. Negative McBurney's point), normal bowel sounds. Absent: distended, guarding, rebound, rigid Extremities exam: Present: normal inspection, full ROM, normal capillary refill. Absent: tenderness, pedal edema, joint swelling, calf tenderness Back exam: Present: normal inspection Neurological exam: Present: alert, oriented X3, CN II-XII intact Psychiatric exam: Present: normal affect, normal mood Skin exam: Present: warm, dry, intact, normal color. Absent: rash Course Vital Signs 07/10/24 07/10/24 14:50 17:01 Temperature 98.3 F Pulse Rate 94 103 H Respiratory 18 20 Rate Blood Pressure 130/65 130/68 O2 Sat by Pulse 95 98 Oximetry Medical Decision Making - Medical Decision Making Was pt. sent in by a medical professional or institution (, [facility], [facility] [employer], urgent care, hospital, or [facility]...) When possible be specific @ -No Did you speak to anyone other than the patient for history (EMS, parent, family, police, friend...)? What history was obtained from this source @ -No Did you review nursing and triage notes (agree or disagree)? Why? @ -I reviewed and agree with nursing and triage notes Were old charts reviewed (outside hosp., previous admission, EMS record, old EKG, old radiological studies, urgent care reports/EKG's, [facility] records)? Report findings @ -No old charts were reviewed Differential Diagnosis (chest pain, altered mental status, abdominal pain women, abdominal pain men, vaginal bleeding, weakness, fever, dyspnea, syncope, headache, dizziness, GI bleed, back pain, seizure, CVA, palpatations, mental health, musculoskeletal)? @ -Differential Abdominal Pain Women: Appendicitis, Cholecystitis, diverticulosis, ischemic bowel, pancreatitis, hepatitis, UTI, gastroenteritis, AAA, incarcerated hernia, bowel obstruction, constipation, inflammatory bowel, hepatitis, peptic ulcer disease, splenic infarction, perforated viscus, vulvitis, ovarian torsion, PID, kidney stone, placenta abruption, this is not meant to be an all-inclusive list EKG interpreted by me (3pts min.). @ -Sinus tachycardia with occasional PAC. No ST changes or T wave inversion. Ventricular rate 103 bpm, BOUCHRA 131 ms, QRS duration 90 ms, QTc 393 ms. X-rays interpreted by me (1pt min.). @ -None done CT interpreted by me (1pt min.). @ -Abdomen/pelvic CT shows diverticulosis without diverticulitis and stable left breast mass. U/S interpreted by me (1pt. min.). @ -None done What testing was considered but not performed or refused? (CT, X-rays, U/S, la bs)? Why? @ -None What meds were considered but not given or refused? Why? @ -None Did you discuss the management of the patient with other professionals (professionals i.e. , PA, [employer], lab, RT, psych nurse, social media content specialist, business lawyer, teacher, aircraft electronics technical officer, immigration case worker)? Give summary @ -No Was smoking cessation discussed for >3mins.? @ -No Was critical care preformed (if so, how long)? @ -No Were there social determinants of health that impacted care today? How? (Homelessness, low income, unemployed, alcoholism, drug addiction, transportation, low edu. Level, literacy, decrease access to med. care, alf, rehab)? @ -No Was there de-escalation of care discussed even if they declined (Discuss DNR or withdrawal of care, Hospice)? DNR status @ -No What co-morbidities impacted this encounter? (DM, HTN, Smoking, COPD, CAD, Cancer, CVA, ARF, Chemo, Hep., AIDS, mental health diagnosis, sleep apnea, morbid obesity)? @ -Diverticulitis/diverticulosis, breast cancer Was patient admitted / discharged? Hospital course, mention meds given and route, prescriptions, significant lab abnormalities, going to OR and other pertinent info. @ -Lab work shows leukocytosis (12.1), elevated BUN/creatinine (57/1.09) and positive stool occult blood. Hemoglobin 11.3. Lactic acid, amylase/lipase neg ative. Stool culture C. difficile negative. Abdomen/pelvic CT shows diverticulosis without diverticulitis and stable left breast mass. Patient is stable with no significantly concerning findings. Will discharge and advised follow-up with PCP/GI this week for ongoing testing to determine source of GI bleed. Undiagnosed new problem with uncertain prognosis? @ -Melena Drug Therapy requiring intensive monitoring for toxicity (Heparin, Nitro, Insulin, Cardizem)? @ -No Were any procedures done? @ -No Diagnosis/symptom? @ -Melena, NSAID use Acute, or Chronic, or Acute on Chronic? @ -Acute Uncomplicated (without systemic symptoms) or Complicated (systemic symptoms)? @ -Complicated Side effects of treatment? @ -No Exacerbation, Progression, or Severe Exacerbation? @ -No Poses a threat to life or bodily function? How? (Chest pain, [place], [place], pneumonia, PE, COPD, DKA, ARF, appy, cholecystitis, CVA, Diverticulitis, Homicidal, Suicidal, threat to staff... and all critical care pts) @ -No - Lab Data Result diagrams: 07/10/24 16:48 07/10/24 16:47 Lab Results 07/10/24 07/10/24 07/10/24 Range/Units 16:47 16:47 16:47 WBC (3.8-10.6) k/uL RBC (3.80-5.40) m/uL Hgb (11.4-16.0) gm/dL Hct (34.0-46.0) % MCV (80.0-100.0) fL MCH (25.0-35.0) pg MCHC (31.0-37.0) g/dL RDW (11.5-15.5) % Plt Count (150-450) k/uL MPV Neutrophils % % Lymphocytes % % Monocytes % % Eosinophils % % Basophils % % Neutrophils # (1.3-7.7) k/uL Lymphocytes # (1.0-4.8) k/uL Monocytes # (0-1.0) k/uL Eosinophils # (0-0.7) k/uL Basophils # (0-0.2) k/uL Hypochromasia PT 11.3 (10.0-12.5) sec INR 1.0 (<1.2) APTT 22.2 (22.0-30.0) sec Sodium 140 (137-145) mmol/L Potassium 4.1 (3.5-5.1) mmol/L Chloride 110 H (98-107) mmol/L Carbon Dioxide 21 L (22-30) mmol/L Anion Gap 9 mmol/L BUN 57 H (7-17) mg/dL Creatinine 1.09 H (0.52-1.04) mg/dL Est GFR (CKD-EPI)AfAm 56 (>60 ml/min/1.73 sqM) Est GFR (CKD-EPI)NonAf 49 (>60 ml/min/1.73 sqM) Glucose 122 H (74-99) mg/dL Plasma Lactic Acid Justin (0.7-2.0) mmol/L Calcium 9.8 (8.4-10.2) mg/dL Total Bilirubin 0.3 (0.2-1.3) mg/dL AST 21 (14-36) U/L ALT 16 (4-34) U/L Alkaline Phosphatase 81 (38-126) U/L Total Protein 6.4 (6.3-8.2) g/dL Albumin 3.7 (3.5-5.0) g/dL Amylase 98 (30-110) U/L Lipase 276 (23-300) U/L Stool Occult Blood Positive H (Negative) C. difficile (EIA) Intrp (Negative) 07/10/24 07/10/24 07/10/24 Range/Units 16:47 16:48 19:49 WBC 12.1 H (3.8-10.6) k/uL RBC 3.87 (3.80-5.40) m/uL Hgb 11.3 L (11.4-16.0) gm/dL Hct 35.6 (34.0-46.0) % MCV 91.9 (80.0-100.0) fL MCH 29.3 (25.0-35.0) pg MCHC 31.8 (31.0-37.0) g/dL RDW 14.8 (11.5-15.5) % Plt Count 308 (150-450) k/uL MPV 7.2 Neutrophils % 79 % Lymphocytes % 15 % Monocytes % 4 % Eosinophils % 0 % Basophils % 1 % Neutrophils # 9.6 H (1.3-7.7) k/uL Lymphocytes # 1.8 (1.0-4.8) k/uL Monocytes # 0.5 (0-1.0) k/uL Eosinophils # 0.0 (0-0.7) k/uL Basophils # 0.1 (0-0.2) k/uL Hypochromasia Slight PT (10.0-12.5) sec INR (<1.2) APTT (22.0-30.0) sec Sodium (137-145) mmol/L Potassium (3.5-5.1) mmol/L Chloride (98-107) mmol/L Carbon Dioxide (22-30) mmol/L Anion Gap mmol/L BUN (7-17) mg/dL Creatinine (0.52-1.04) mg/dL Est GFR (CKD-EPI)AfAm (>60 ml/min/1.73 sqM) Est GFR (CKD-EPI)NonAf (>60 ml/min/1.73 sqM) Glucose (74-99) mg/dL Plasma Lactic Acid Justin 1.4 (0.7-2.0) mmol/L Calcium (8.4-10.2) mg/dL Total Bilirubin (0.2-1.3) mg/dL AST (14-36) U/L ALT (4-34) U/L Alkaline Phosphatase (38-126) U/L Total Protein (6.3-8.2) g/dL Albumin (3.5-5.0) g/dL Amylase (30-110) U/L Lipase (23-300) U/L Stool Occult Blood (Negative) C. difficile (EIA) Intrp Negative (Negative) Disposition Clinical Impression: Melena Disposition: HOME SELF-CARE Condition: Good Instructions (If sedation given, give patient instructions): Melena (ED) Additional Instructions: Follow-up with PCP/GI this week. Decrease use of NSAIDs Is patient prescribed a controlled substance at d/c from ED?: No Referrals: Efrain Navarro DO [Primary Care Provider] - 1-2 days Time of Disposition: 19:49
[2024-07-10 17:02] LABS: Basophils # (A) 0.1 k/uL (0-0.2); Basophils % (A) 1 %; Eosinophils % (A) 0 %; HCT 35.6 % (34.0-46.0); HGB 11.3 gm/dL (11.4-16.0); Hypochromasia Slight; Lymphocytes # (A) 1.8 k/uL (1.0-4.8); Lymphocytes % (A) 15 %; MCH 29.3 pg (25.0-35.0); MCHC 31.8 g/dL (31.0-37.0); MCV 91.9 fL (80.0-100.0); Mean Platelet Volume 7.2; Monocytes # (A) 0.5 k/uL (0-1.0); Monocytes % (A) 4 %; Neutrophils # (A) 9.6 k/uL (1.3-7.7); Neutrophils % (A) 79 %; Platelet Count 308 k/uL (150-450); RBC 3.87 m/uL (3.80-5.40); RDW 14.8 % (11.5-15.5); WBC 12.1 k/uL (3.8-10.6)
[2024-07-10 17:18] LABS: ALT 16 U/L (4-34); AST 21 U/L (14-36); African American GFR (CKD) 56 (>60 ml/min/1.73 sqM); Albumin 3.7 g/dL (3.5-5.0); Alkaline Phosphatase 81 U/L (38-126); Amylase 98 U/L (30-110); Anion Gap 9 mmol/L; Blood Urea Nitrogen 57 mg/dL (7-17); Calcium 9.8 mg/dL (8.4-10.2); Carbon Dioxide 21 mmol/L (22-30); Chloride 110 mmol/L (98-107); Glucose 122 mg/dL (74-99); Lipase 276 U/L (23-300); Non-African American GFR(CKD) 49 (>60 ml/min/1.73 sqM); Potassium 4.1 mmol/L (3.5-5.1); Sodium 140 mmol/L (137-145); Total Bilirubin 0.3 mg/dL (0.2-1.3); Total Protein 6.4 g/dL (6.3-8.2)
[2024-07-10 17:34] LABS: Partial Thromboplastin Time 22.2 sec (22.0-30.0); Prothrombin Time 11.3 sec (10.0-12.5)
--- NOTE | 2024-07-10 19:15 | CT ---
EXAMINATION TYPE: CT abdomen pelvis w con DATE OF EXAM: 07/10/2024 6:50 PM COMPARISON: Mammogram 09/26/2021, 10/28/2022 CLINICAL INDICATION: Female, 79 years old with history of LLQ tenderness, history of diverticulitis, abdominal pain, nausea TECHNIQUE: Axial images were obtained from above the diaphragm to the pubic rami in the axial plane a t 5 mm thick sections. Reconstructed images are reviewed on the computer in the coronal plane. CONTRAST: 100 mL of Isovue 300. Study performed without Oral Contrast DLP: 977.2 mGycm, Automated exposure control for dose reduction was used. FINDINGS: Limited CT sections are obtained the lung bases. Suspicious infiltrate is not identified. There appe ars to be some mild pulmonary fibrosis present. Biopsy marker may be within a mass within the left b reast. Correlation with mammography is recommended when the patient is stable. CT ABDOMEN: Liver: Normal Spleen: Normal Pancreas: Normal Adrenal glands: The adrenal glands are normal. Gallbladder: Surgically absent Kidneys: No masses are evident. No hydronephrosis is present. No cysts are present. Delayed images were obtained through the kidneys, which remain unremarkable. Aorta: Vascular calcification is within the aorta. Inferior vena cava: Normal. CT PELVIS: Loops of bowel within the abdomen and pelvis are normal. Multiple diverticular changes within the si gmoid colon. No adjacent inflammatory changes to suggest acute diverticulitis is evident. Appendix: Normal as visualized. Urinary bladder: Normal. Genitourinary structures: Uterus and ovaries are not identified. Adnexa are normal. Osseous structures: No suspicious lytic or sclerotic lesions. IMPRESSION: 1. Diverticulosis without acute diverticulitis. 2. Left breast mass appears stable from comparison. Mammography on schedule when patient stable is re commended. [facility], Workstation: [facility], 07/10/2024 7:13 PM
[2024-07-10 21:37] VITALS: BP 126/75; PULSE 100; RESP 18
== END 2024-07-10 21:41 | disposition home or self-care (01) ==
LOC: EC 14:45
DX: K92.1 Melena (principal); R00.0 Tachycardia, unspecified; K57.92 Diverticulitis of intestine, part unspecified, without perforation or abscess without bleeding; Z85.3 Personal history of malignant neoplasm of breast; Z91.030 Bee allergy status; Z88.8 Allergy status to other drugs, medicaments and biological substances
CPT/HCPCS: 36415; 93005; 80053; 82150; 83605; 83690; 85025; 85610; 85730; 82272; 87324; 87045; 87046; 74177; 99285; Q9967